=== PATIENT | male | born 1930 | race Caucasian/White ===

== ENCOUNTER 2017-03-27 14:27 | Emergency (ER) | payer MEDICARE, OTHER ==
[~2017-03-27] VITALS: Ht 177.8 cm; Wt 85.0 kg
[~2017-03-27 14:27] MED LIST: ASPI81 PO; FISH500C PO; METO25 PO; PROT40TA PO; SIMV20TA PO; VITA400C28 PO
[2017-03-27 14:33] VITALS: BP 135/96; PULSE 88; RESP 16; TEMP 98.5; O2SAT 94
[2017-03-27 14:57] LABS: GLUCOSE,URINE NEG (NEG); KETONE, URINE NEG (NEG); NITRITE,URINE NEG (NEG)
[2017-03-27 14:59] LABS: BLOOD, URINE MOD (NEG); METHOD OF COLLECTION CLEAN CATCH; URINE COLOR YELLOW (YELLW/STRAW)
[2017-03-27 15:01] LABS: COMMENT (UR) CULT NOT INDICATED; CULTURE IF INDICATED CULT NOT INDICATED; RBC, URINE 0-3 /hpf (0-3); WBC, URINE 0-2 /hpf (0-5)
[2017-03-27] MEDS ORDERED: FURO20TA PO (15:25)
[2017-03-27] MEDS ORDERED: POTA10CA PO (15:25)
[2017-03-27] MEDS ORDERED: OMEP20TA PO (15:25)
[2017-03-27] MEDS ORDERED: ZOCO20TA PO (15:25)
[2017-03-27] MEDS ORDERED: XARE20TA PO (15:25)
[2017-03-27] MEDS ORDERED: LOSA25TA PO (15:25)
[2017-03-27] MEDS ORDERED: TEMA30CA PO (15:25)
[2017-03-27] MEDS ORDERED: SODIUM CHLORIDE 0.9% FLUSH 10 ML FLUSH IV FLUSH PRN (16:00)
[2017-03-27 16:25] LABS: AUTOMATED NEUTROPHIL # 4.6 TH/MM3 (1.8-7.7); BASOPHIL # 0.1 TH/MM3 (0-0.2); EOSINOPHIL # 0.1 TH/MM3 (0-0.4); EOSINOPHIL % 1.8 % (0.0-4.0); HEMATOCRIT 41.5 % (39.0-51.0); HEMO FLAGS DIFF FINAL; LYMPH % 23.5 % (9.0-44.0); LYMPHOCYTE # 1.7 TH/MM3 (1.0-4.8); MEAN CELL VOLUME 89.5 FL (80.0-100.0); MEAN CORPUSCULAR HEMOGLOBIN 30.4 PG (27.0-34.0); MEAN CORPUSCULAR HGB CONC 33.9 % (32.0-36.0); MONO % 9.4 % (0.0-8.0); NEUT % 64.3 % (16.0-70.0); PLATELET COUNT 242 TH/MM3 (150-450); RED BLOOD COUNT 4.64 MIL/MM3 (4.50-5.90); RED CELL DISTRIBUTION WIDTH 12.9 % (11.6-17.2); WHITE BLOOD COUNT 7.2 TH/MM3 (4.0-11.0)
[2017-03-27 16:34] LABS: CHLORIDE 104 MEQ/L (98-107); POTASSIUM 3.7 MEQ/L (3.5-5.1); SODIUM (NA) 142 MEQ/L (136-145)
[2017-03-27 16:38] LABS: ANION GAP 10 MEQ/L (5-15); APTT (PATIENT) 32.1 SEC (24.3-30.1); BICARBONATE 28.4 MEQ/L (21.0-32.0); BLOOD UREA NITROGEN 13 MG/DL (7-18); INTERNATIONAL NORMALIZED RATIO 1.3 RATIO
--- NOTE | 2017-03-27 16:40 | PD ---
HPI Chief Complaint: Abdominal Pain Time Seen by Provider: 15:49 Travel History International Travel<30 days: No Contact w/Intl Traveler<30days: No Traveled to known affect area: No History of Present Illness HPI Patient is an 86-year-old male with history of afib, htn, hyperlipidemia who presents to emergency room with his with complaints of abdominal pain. Reports that he has been having right-sided flank/abdominal pain since yesterday morning. he reports the pain is constant, reports no nausea or vomiting with symptoms. Denies dysuria, urinary urgency or frequency or hematuria. Denies any history of kidney stones in the past. Reports that he normally has daily bm's, reports that he was unable to have a bowel movement today and was concerned that he may be constipated. 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) Cardiovascular Problems: Yes (PACEMAKER) High Cholesterol: Yes Chemotherapy: No Chest Pain: No Congestive Heart Failure: Yes COPD: No Cerebrovascular Accident: Yes (TIA 2004) Diabetes: No Diminished Hearing: No Endocrine: No Gastrointestinal Disorders: No GERD: Yes Glaucoma: No Genitourinary: No Hypertension: Yes Immune Disorder: No Implanted Vascular Access Dvce: Yes Musculoskeletal: Yes Neurologic: Yes (current admission) Psychiatric: No Reproductive: No Respiratory: No Myocardial Infarction: No Radiation Therapy: No Sickle Cell Disease: No Sleep Apnea: No Thyroid Disease: No Tetanus Vaccination: < 5 Years Influenza Vaccination: No Past Surgical History Cardiac Surgery: Yes (PACEMAKER INSERTION 2004, replaced in 2010) Pacemaker: Yes (GUIDANT, BATTERY REPLACE 04/2011,, REPLACED 08/24/11 -[employer]) Other Surgery: Yes Social History Alcohol Use: Yes (occas. wine ) Tobacco Use: No Substance Use: No Allergies-Medications (Allergen,Severity, Reaction): Coded Allergies: MRI PRECAUTION (Verified Allergy, Severe, PACEMAKER, 03/27/17) Reported Meds & Prescriptions Reported Meds & Active Scripts Active Reported Xarelto (Rivaroxaban) 20 Mg Tab 20 Mg PO DAILY Temazepam 30 Mg Cap 30 Mg PO HS PRN Furosemide 20 Mg Tab 20 Mg PO DAILY Omeprazole 20 Mg Tab 20 Mg PO DAILY Losartan (Losartan Potassium) 25 Mg Tab 25 Mg PO DAILY Zocor (Simvastatin) 20 Mg Tab 20 Mg PO DAILY Potassium Chloride ER (Potassium Chloride) 10 Meq Cap 10 Meq PO DAILY Review of Systems General / Constitutional: No: Fever, Chills Eyes: No: Visual changes HENT: No: Headaches Cardiovascular: No: Chest Pain or Discomfort Respiratory: No: Shortness of Breath Gastrointestinal: Positive: Abdominal Pain, Constipation Genitourinary: No: Dysuria Musculoskeletal: No: Pain Skin: No Rash Neurologic: No: Weakness Psychiatric: No: Depression Endocrine: No: Polydipsia Hematologic/Lymphatic: No: Easy Bruising Physical Exam Narrative GENERAL: No acute distress, nontoxic SKIN: Focused skin assessment warm/dry. HEAD: Atraumatic. Normocephalic. EYES: Pupils equal and round. No scleral icterus. No injection or drainage. ENT: No nasal bleeding or discharge. Mucous membranes pink and moist. NECK: Trachea midline. No JVD. CARDIOVASCULAR: Regular rate and rhythm. No murmur appreciated. RESPIRATORY: No accessory muscle use. Clear to auscultation. Breath sounds equal bilaterally. GASTROINTESTINAL: Abdomen soft, non-tender, nondistended. Hepatic and splenic margins not palpable. Rectal exam performed with RN at bedside, patient with soft stool in stool vault, no signs of obstruction MUSCULOSKELETAL: No obvious deformities. No clubbing. No cyanosis. No edema. NEUROLOGICAL: Awake and alert. No obvious cranial nerve deficits. Motor grossly within normal limits. Normal speech. PSYCHIATRIC: Appropriate mood and affect; insight and judgment normal. Data Data Last Documented VS Vital Signs Date Time Temp Pulse Resp B/P Pulse Ox O2 Delivery O2 Flow Rate FiO2 03/27/17 15:17 16 03/27/17 14:33 98.5 88 135/96 94 Orders Urinalysis - C+S If Indicated (03/27/17 14:39) Complete Blood Count With Diff (03/27/17 15:58) Comprehensive Metabolic Panel (03/27/17 15:58) Lipase (03/27/17 15:58) Prothrombin Time / Inr (Pt) (03/27/17 15:58) Act Partial Throm Time (Ptt) (03/27/17 15:58) Iv Access Insert/Monitor (03/27/17 15:58) Ecg Monitoring (03/27/17 15:58) Sodium Chloride 0.9% Flush (Ns Flush) (03/27/17 16:00) Ct Abd/Pel W/O Iv Contrast (03/27/17 16:46) Labs Laboratory Tests Test 03/27/17 03/27/17 14:40 16:15 Urine Collection Type CLEAN CATCH Urine Color YELLOW Urine Turbidity CLEAR Urine pH 6.0 Urine Specific Silt 1.007 Urine Protein NEG mg/dL Urine Glucose (UA) NEG mg/dL Urine Ketones NEG mg/dL Urine Occult Blood MOD Urine Nitrite NEG Urine Bilirubin NEG Urine Leukocyte Esterase NEG Urine RBC 0-3 /hpf Urine WBC 0-2 /hpf Microscopic Urinalysis Comment CULT NOT INDICATED White Blood Count 7.2 TH/MM3 Red Blood Count 4.64 MIL/MM3 Hemoglobin 14.1 GM/DL Hematocrit 41.5 % Mean Corpuscular Volume 89.5 FL Mean Corpuscular Hemoglobin 30.4 PG Mean Corpuscular Hemoglobin 33.9 % Concent Red Cell Distribution Width 12.9 % Platelet Count 242 TH/MM3 Mean Platelet Volume 8.6 FL Neutrophils (%) (Auto) 64.3 % Lymphocytes (%) (Auto) 23.5 % Monocytes (%) (Auto) 9.4 % Eosinophils (%) (Auto) 1.8 % Basophils (%) (Auto) 1.0 % Neutrophils # (Auto) 4.6 TH/MM3 Lymphocytes # (Auto) 1.7 TH/MM3 Monocytes # (Auto) 0.7 TH/MM3 Eosinophils # (Auto) 0.1 TH/MM3 Basophils # (Auto) 0.1 TH/MM3 CBC Comment DIFF FINAL Differential Comment Prothrombin Time 14.0 SEC Prothromb Time International 1.3 RATIO Ratio Activated Partial 32.1 SEC Thromboplast Time Sodium Level 142 MEQ/L Potassium Level 3.7 MEQ/L Chloride Level 104 MEQ/L Carbon Dioxide Level 28.4 MEQ/L Anion Gap 10 MEQ/L Blood Urea Nitrogen 13 MG/DL Creatinine 0.98 MG/DL Estimat Glomerular Filtration 72 ML/MIN Rate Random Glucose 95 MG/DL Calcium Level 8.4 MG/DL Total Bilirubin 0.7 MG/DL Aspartate Amino Transf 17 U/L (AST/SGOT) Alanine Aminotransferase 15 U/L (ALT/SGPT) Alkaline Phosphatase 68 U/L Total Protein 7.3 GM/DL Albumin 3.3 GM/DL Lipase 76 U/L MDM Medical Decision Making Medical Screen Exam Complete: Yes Emergency Medical Condition: Yes Interpretation(s) Vital Signs Date Time Temp Pulse Resp B/P Pulse Ox O2 Delivery O2 Flow Rate FiO2 03/27/17 15:17 16 03/27/17 14:33 98.5 88 16 135/96 94 Differential Diagnosis Differential includes constipation, kidney stones, pyelonephritis, cystitis, gastroenteritis, electrolyte abnormality Narrative Course Patient is an 86-year-old male who presents to emergency room with complaints of abdominal pain since yesterday morning. Patient reports that he feels constipated, has been unable to have a bowel movement today. Patient denies any fevers or chills, nausea or vomiting, denies any urinary symptoms at this time. Patient concerned for possible constipation. Patient is nontoxic on evaluation, patient reports that his pain is controlled this time. Plan to obtain lab work including CT abdomen pelvis without contrast for further evaluation of abdominal pain and constipation. Vital Signs Date Time Temp Pulse Resp B/P Pulse Ox O2 Delivery O2 Flow Rate FiO2 03/27/17 15:17 16 03/27/17 14:33 98.5 88 16 135/96 94 Laboratory Tests Test 03/27/17 03/27/17 14:40 16:15 Urine Collection Type CLEAN CATCH Urine Color YELLOW (YELLW/STRAW) Urine Turbidity CLEAR (CLEAR) Urine pH 6.0 (5.0-8.5) Urine Specific Silt 1.007 (1.002-1.035) Urine Protein NEG mg/dL (NEG-TRACE) Urine Glucose (UA) NEG mg/dL (NEG) Urine Ketones NEG mg/dL (NEG) Urine Occult Blood MOD (NEG) Urine Nitrite NEG (NEG) Urine Bilirubin NEG (NEG) Urine Leukocyte Esterase NEG (NEG) Urine RBC 0-3 /hpf (0-3) Urine WBC 0-2 /hpf (0-5) Microscopic Urinalysis Comment CULT NOT INDICATED White Blood Count 7.2 TH/MM3 (4.0-11.0) Red Blood Count 4.64 MIL/MM3 (4.50-5.90) Hemoglobin 14.1 GM/DL (13.0-17.0) Hematocrit 41.5 % (39.0-51.0) Mean Corpuscular Volume 89.5 FL (80.0-100.0) Mean Corpuscular Hemoglobin 30.4 PG (27.0-34.0) Mean Corpuscular Hemoglobin 33.9 % Concent (32.0-36.0) Red Cell Distribution Width 12.9 % (11.6-17.2) Platelet Count 242 TH/MM3 (150-450) Mean Platelet Volume 8.6 FL (7.0-11.0) Neutrophils (%) (Auto) 64.3 % (16.0-70.0) Lymphocytes (%) (Auto) 23.5 % (9.0-44.0) Monocytes (%) (Auto) 9.4 % (0.0-8.0) Eosinophils (%) (Auto) 1.8 % (0.0-4.0) Basophils (%) (Auto) 1.0 % (0.0-2.0) Neutrophils # (Auto) 4.6 TH/MM3 (1.8-7.7) Lymphocytes # (Auto) 1.7 TH/MM3 (1.0-4.8) Monocytes # (Auto) 0.7 TH/MM3 (0-0.9) Eosinophils # (Auto) 0.1 TH/MM3 (0-0.4) Basophils # (Auto) 0.1 TH/MM3 (0-0.2) CBC Comment DIFF FINAL Differential Comment Prothrombin Time 14.0 SEC (9.8-11.6) Prothromb Time International 1.3 RATIO Ratio Activated Partial 32.1 SEC Thromboplast Time (24.3-30.1) Sodium Level 142 MEQ/L (136-145) Potassium Level 3.7 MEQ/L (3.5-5.1) Chloride Level 104 MEQ/L (98-107) Carbon Dioxide Level 28.4 MEQ/L (21.0-32.0) Anion Gap 10 MEQ/L (5-15) Blood Urea Nitrogen 13 MG/DL (7-18) Creatinine 0.98 MG/DL (0.60-1.30) Estimat Glomerular Filtration 72 ML/MIN (>89) Rate Random Glucose 95 MG/DL (74-106) Calcium Level 8.4 MG/DL (8.5-10.1) Total Bilirubin 0.7 MG/DL (0.2-1.0) Aspartate Amino Transf 17 U/L (15-37) (AST/SGOT) Alanine Aminotransferase 15 U/L (12-78) (ALT/SGPT) Alkaline Phosphatase 68 U/L (45-117) Total Protein 7.3 GM/DL (6.4-8.2) Albumin 3.3 GM/DL (3.4-5.0) Lipase 76 U/L (73-393) cbc: wnl bmp: wnl coags: inr 1.3, pt 14, ptt 32.1 ua: mod blood Ct pending Last Impressions Abdomen/Pelvis CT 03/27/17 1646 Signed Impressions: Service Date/Time: Monday, March 27, 2017 17:15 - CONCLUSION: 1. No acute abnormality is seen. 2. Scattered colonic diverticula without inflammatory change. Ehsan Red MD Reviewed all labs and studies as well as incidental findings with patient and his in detail. Copies of his studies were given to him. Patient will return to ER as needed. Rectal exam benign. Abdomen is soft, nt/nd, no peritoneal signs on discharge. Signs and symptoms of an acute abdomen was reviewed with patient in detail. He will return to ER if he develops any of these symptoms. Diagnosis Primary Impression: Abdominal pain Qualified Code: R10.10 - Pain of upper abdomen Additional Impression: Hematuria Patient Instructions: General Instructions Additional Instructions: Please give patient a copy of his lab work and studies at discharge Please follow-up with your primary care doctor Return to the emergency room symptoms worsen or progress or return Return to emergency room as needed Disposition: 01 DISCHARGE HOME Condition: Stable Minoo Chinchilla DO Mar 27, 2017 16:40
[2017-03-27 16:41] LABS: ALT (GPT) 15 U/L (12-78); AST (GOT) 17 U/L (15-37); GLOMERULAR FILTRATION RATE 72 ML/MIN (>89)
[2017-03-27 16:43] LABS: TOTAL BILIRUBIN ADULT 0.7 MG/DL (0.2-1.0)
[2017-03-27 16:44] LABS: ALKALINE PHOSPHATASE 68 U/L (45-117)
--- NOTE | 2017-03-27 17:56 | RADRPT ---
EXAM DATE/TIME: 03/27/2017 17:15 [facility] COMPARISON: No previous studies available for comparison. INDICATIONS : Right sided pain for 2 days. Constipation. ORAL CONTRAST: No oral contrast ingested. RADIATION DOSE: 17.80 CTDIvol (mGy) MEDICAL HISTORY : Cardiovascular disease. SURGICAL HISTORY : Pacemaker. ENCOUNTER: Initial ACUITY: 2 days PAIN SCALE: 8/10 LOCATION: Right lateral TECHNIQUE: Volumetric scanning of the abdomen and pelvis was performed. Using automated exposure control and ad justment of the mA and/or kV according to patient size, radiation dose was kept as low as reasonably achievable to obtain optimal diagnostic quality images. DICOM format image data is available electro nically for review and comparison. FINDINGS: LOWER CHEST: There is a pacing device in place. There is interstitial disease at the bases. LIVER: Homogeneous density without lesion. There is no dilation of the biliary tree. No calcified gallston es. SPLEEN: Normal size without lesion. PANCREAS: Within normal limits. KIDNEYS: Normal in size and shape. There is no mass, stone, or hydronephrosis. ADRENAL GLANDS: Within normal limits. VASCULAR: There is no aortic aneurysm. Atherosclerotic calcifications are seen throughout the ureter system. BOWEL/MESENTERY: The stomach, small bowel, and colon demonstrate no acute abnormality. There is no free intraperitone al air or fluid. There are scattered colonic diverticula. The appendix is not seen. ABDOMINAL WALL: Within normal limits. RETROPERITONEUM: There is no lymphadenopathy. BLADDER: No wall thickening or mass. REPRODUCTIVE: Within normal limits. INGUINAL: There is no lymphadenopathy or hernia. MUSCULOSKELETAL: Within normal limits for patient age. CONCLUSION: 1. No acute abnormality is seen. 2. Scattered colonic diverticula without inflammatory change. Ehsan Red MD on March 27, 2017 at 17:45 Board Certified Radiologist. This report was verified electronically.
[2017-03-27 18:39] VITALS: BP 130/87
== END 2017-03-27 18:41 | disposition home or self-care (01) ==
LOC: PHED 14:27
DX: R10.10 Upper abdominal pain, unspecified (principal); R31.9 Hematuria, unspecified; I48.91 Unspecified atrial fibrillation; I50.9 Heart failure, unspecified; I11.0 Hypertensive heart disease with heart failure; Z86.73 Personal history of transient ischemic attack (TIA), and cerebral infarction without residual deficits; Z95.0 Presence of cardiac pacemaker; Z79.01 Long term (current) use of anticoagulants
CPT/HCPCS: 74176; 80053; 81001; 83690; 85025; 85610; 85730

== ENCOUNTER 2017-04-10 10:55 | Observation (INO) | payer OTHER ==
[~2017-04-10] VITALS: Ht 177.8 cm; Wt 86.8 kg
[~2017-04-10 10:55] MED LIST changes: -ASPI81 PO; -FISH500C PO; +FURO20TA PO; +LOSA25TA PO; -METO25 PO; +OMEP20TA PO; +POTA10CA PO; -PROT40TA PO; -SIMV20TA PO; +TEMA30CA PO; -VITA400C28 PO; +XARE20TA PO; +ZOCO20TA PO
[2017-04-10 10:59] VITALS: BP 123/76; PULSE 82; RESP 16; TEMP 98.3; O2SAT 95
[2017-04-10] MEDS ORDERED: SODIUM CHLORIDE 0.9% FLUSH 10 ML FLUSH IVF PRN (11:30)
[2017-04-10 11:40] VITALS: O2SAT 92
[2017-04-10 11:49] LABS: BASOPHIL # 0.1 TH/MM3 (0-0.2); BASOPHIL % 1.8 % (0.0-2.0); EOSINOPHIL # 0.1 TH/MM3 (0-0.4); EOSINOPHIL % 1.9 % (0.0-4.0); HEMATOCRIT 40.6 % (39.0-51.0); HEMO FLAGS DIFF FINAL; LYMPH % 20.8 % (9.0-44.0); LYMPHOCYTE # 1.3 TH/MM3 (1.0-4.8); MEAN CORPUSCULAR HEMOGLOBIN 29.8 PG (27.0-34.0); MEAN CORPUSCULAR HGB CONC 33.4 % (32.0-36.0); MONO % 12.5 % (0.0-8.0); PLATELET COUNT 276 TH/MM3 (150-450); RED BLOOD COUNT 4.56 MIL/MM3 (4.50-5.90); RED CELL DISTRIBUTION WIDTH 12.4 % (11.6-17.2); WHITE BLOOD COUNT 6.3 TH/MM3 (4.0-11.0)
[2017-04-10 12:01] LABS: CHLORIDE 102 MEQ/L (98-107); POTASSIUM 4.5 MEQ/L (3.5-5.1); SODIUM (NA) 137 MEQ/L (136-145)
[2017-04-10 12:04] LABS: APTT (PATIENT) 36.9 SEC (24.3-30.1); INTERNATIONAL NORMALIZED RATIO 1.3 RATIO; PROTHROMBIN TIME - PATIENT 14.7 SEC (9.8-11.6)
[2017-04-10 12:05] LABS: ANION GAP 5 MEQ/L (5-15); BLOOD UREA NITROGEN 12 MG/DL (7-18)
--- NOTE | 2017-04-10 12:07 | PD ---
HPI Chief Complaint: GI Complaint Time Seen by Provider: 11:04 Travel History International Travel<30 days: No Contact w/Intl Traveler<30days: No Traveled to known affect area: No History of Present Illness HPI Patient sneezed 86-year-old male presents emergency department for evaluation of rectal bleeding which is painless. Patient states happened to him once several months ago and had a colonoscopy which didn't show any acute source of bleeding but did show gastritis, Cornejo's esophagus and diverticulosis. Patient denies any feelings of weakness and dizziness syncope abdominal pain nausea or vomiting. He is on blood thinners for history of atrial fibrillation. He states his symptoms have been bright red blood and dark blood per rectum. 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) Cardiovascular Problems: Yes (a-fib,pacemaker) High Cholesterol: Yes Chemotherapy: No Chest Pain: No Congestive Heart Failure: Yes COPD: No Cerebrovascular Accident: Yes (TIA 2004) Diabetes: No Diminished Hearing: No Endocrine: No Gastrointestinal Disorders: No GERD: Yes Glaucoma: No Genitourinary: No Hypertension: Yes Immune Disorder: No Implanted Vascular Access Dvce: Yes Musculoskeletal: Yes Neurologic: Yes (current admission) Psychiatric: No Reproductive: No Respiratory: Yes (chf) Myocardial Infarction: No Radiation Therapy: No Sickle Cell Disease: No Sleep Apnea: No Thyroid Disease: No ?: Not Past Surgical History Cardiac Surgery: Yes (PACEMAKER INSERTION 2004, replaced in 2010) Pacemaker: Yes (GUIDANT, BATTERY REPLACE 04/2011,, REPLACED 08/24/11 -[employer]) Other Surgery: Yes Social History Alcohol Use: Yes (occas. wine ) Tobacco Use: No Substance Use: No Allergies-Medications (Allergen,Severity, Reaction): Coded Allergies: MRI PRECAUTION (Verified Allergy, Severe, PACEMAKER, 04/10/17) Reported Meds & Prescriptions Reported Meds & Active Scripts Active Reported Xarelto (Rivaroxaban) 20 Mg Tab 20 Mg PO DAILY Temazepam 30 Mg Cap 30 Mg PO HS PRN Furosemide 20 Mg Tab 20 Mg PO DAILY Losartan (Losartan Potassium) 25 Mg Tab 25 Mg PO DAILY Zocor (Simvastatin) 20 Mg Tab 20 Mg PO DAILY Potassium Chloride ER (Potassium Chloride) 10 Meq Cap 10 Meq PO DAILY Review of Systems Except as stated in HPI: all other systems reviewed are Neg Physical Exam Narrative GENERAL: Well-developed well-nourished no apparent distress. SKIN: Multiple lesions on the face patient states chronic skin condition. HEAD: Atraumatic. Normocephalic. EYES: Pupils equal and round. No scleral icterus. No injection or drainage. ENT: No nasal bleeding or discharge. Mucous membranes pink and moist. NECK: Trachea midline. No JVD. CARDIOVASCULAR: Regular rate and rhythm. No murmur appreciated. RESPIRATORY: No accessory muscle use. Clear to auscultation. Breath sounds equal bilaterally. GASTROINTESTINAL: Abdomen soft, non-tender, nondistended. Hepatic and splenic margins not palpable. Rectal exam shows positive fecal occult without any gross blood. MUSCULOSKELETAL: No obvious deformities. No clubbing. No cyanosis. No edema. NEUROLOGICAL: Awake and alert. No obvious cranial nerve deficits. Motor grossly within normal limits. Normal speech. PSYCHIATRIC: Appropriate mood and affect; insight and judgment normal. Data Data Last Documented VS Vital Signs Date Time Temp Pulse Resp B/P Pulse Ox O2 Delivery O2 Flow Rate FiO2 04/10/17 12:59 73 127/75 93 04/10/17 10:59 98.3 16 Orders Complete Blood Count With Diff (04/10/17 11:21) Comprehensive Metabolic Panel (04/10/17 11:21) Lipase (04/10/17 11:21) Prothrombin Time / Inr (Pt) (04/10/17 11:21) Act Partial Throm Time (Ptt) (04/10/17 11:21) Type And Screen (04/10/17 11:21) Ecg Monitoring (04/10/17 11:21) Iv Access Insert/Monitor (04/10/17 11:21) Oximetry (04/10/17 11:21) Sodium Chloride 0.9% Flush (Ns Flush) (04/10/17 11:30) Admit Order (Ed Use Only) (04/10/17 ) Labs Laboratory Tests Test 04/10/17 11:34 White Blood Count 6.3 TH/MM3 Red Blood Count 4.56 MIL/MM3 Hemoglobin 13.6 GM/DL Hematocrit 40.6 % Mean Corpuscular Volume 89.0 FL Mean Corpuscular Hemoglobin 29.8 PG Mean Corpuscular Hemoglobin 33.4 % Concent Red Cell Distribution Width 12.4 % Platelet Count 276 TH/MM3 Mean Platelet Volume 8.3 FL Neutrophils (%) (Auto) 63.0 % Lymphocytes (%) (Auto) 20.8 % Monocytes (%) (Auto) 12.5 % Eosinophils (%) (Auto) 1.9 % Basophils (%) (Auto) 1.8 % Neutrophils # (Auto) 4.0 TH/MM3 Lymphocytes # (Auto) 1.3 TH/MM3 Monocytes # (Auto) 0.8 TH/MM3 Eosinophils # (Auto) 0.1 TH/MM3 Basophils # (Auto) 0.1 TH/MM3 CBC Comment DIFF FINAL Differential Comment Prothrombin Time 14.7 SEC Prothromb Time International 1.3 RATIO Ratio Activated Partial 36.9 SEC Thromboplast Time Sodium Level 137 MEQ/L Potassium Level 4.5 MEQ/L Chloride Level 102 MEQ/L Carbon Dioxide Level 30.0 MEQ/L Anion Gap 5 MEQ/L Blood Urea Nitrogen 12 MG/DL Creatinine 1.10 MG/DL Estimat Glomerular Filtration 63 ML/MIN Rate Random Glucose 80 MG/DL Calcium Level 8.2 MG/DL Total Bilirubin 0.4 MG/DL Aspartate Amino Transf 21 U/L (AST/SGOT) Alanine Aminotransferase 16 U/L (ALT/SGPT) Alkaline Phosphatase 77 U/L Total Protein 7.7 GM/DL Albumin 3.3 GM/DL Lipase 100 U/L Blood Type O POSITIVE Antibody Screen NEGATIVE MDM Medical Decision Making Medical Screen Exam Complete: Yes Emergency Medical Condition: Yes Differential Diagnosis Anemia, GI bleeding, upper GI bleeding, gastritis, diverticulosis, colon cancer. Narrative Course Patient roomed in the emergency department, appears well in no apparent distress , hemoglobin was within normal limits, he does have occult positive stool and has a history of being on blood thinners. He describes more significant bleeding at home and is having severe. Discussed with him that considerations need to be given for inpatient hemoglobin trending at a minimum and he is agreeable. Patient was discussed with Dr. Núñez for observation status and he is agreed. Remainder of the labs within normal limits, his abdomen is benign. Diagnosis Primary Impression: GI bleeding Qualified Code: K92.2 - Gastrointestinal hemorrhage, unspecified gastrointestinal hemorrhage type Admitting Information Admitting Physician Requests: Observation Condition: Stable Toñito Treadwell MD Apr 10, 2017 12:07
[2017-04-10 12:08] LABS: ALT (GPT) 16 U/L (12-78); AST (GOT) 21 U/L (15-37); GLOMERULAR FILTRATION RATE 63 ML/MIN (>89)
[2017-04-10 12:09] LABS: TOTAL BILIRUBIN ADULT 0.4 MG/DL (0.2-1.0)
[2017-04-10 12:10] LABS: ALKALINE PHOSPHATASE 77 U/L (45-117)
[2017-04-10 12:59] VITALS: BP 127/75; PULSE 73; O2SAT 93
[2017-04-10] MEDS ORDERED: SODIUM CHLOR 0.9% 1000 ML INJ 1,000 ML IV SCH (13:29)
[2017-04-10] MEDS ORDERED: LACTULOSE SYRUP 20 GM/30 ML CUP PO PRN (13:30)
[2017-04-10] MEDS ORDERED: MAGNESIUM HYDROXIDE SUSP 30 ML CUP PO PRN (13:30)
[2017-04-10] MEDS ORDERED: SODIUM CHLORIDE 0.9% FLUSH 10 ML FLUSH IV FLUSH PRN (13:30)
[2017-04-10] MEDS ORDERED: SENNOSIDES 8.6 MG TAB PO PRN (13:30)
[2017-04-10] MEDS ORDERED: ONDANSETRON HCL 4 MG/2 ML VIAL IVP PRN (13:30)
[2017-04-10] MEDS ORDERED: BISACODYL 10 MG SUPP RECTAL PRN (13:30)
[2017-04-10] MEDS ORDERED: NALOXONE HCL 0.4 MG/ML AMP IV PRN (13:30)
[2017-04-10 15:49] VITALS: PULSE 68
[2017-04-10 16:00] VITALS: BP 145/85; PULSE 66; RESP 20; TEMP 95.5; O2SAT 92
[2017-04-10] MEDS ORDERED: TEMAZEPAM 15 MG CAP PO PRN (17:15)
--- NOTE | 2017-04-10 17:23 | HHI.HP ---
[facility] Service [facility] Primary Care Physician Donald Smith MD Admission Diagnosis GI bleed. Diagnoses: Chief Complaint: Rectal bleed Travel History International Travel<30 Days: No Contact w/Intl Traveler <30 Da: No Traveled to Known Affected Are: No History of Present Illness 86 years old maleH/O CHF, hypertension came to the ED with history of 2 days rectal bleed which was painless, most of the history was divided by the who take care of the patient, she stated he had multiple bowel movements with dark blood mixed with the stool. Patient had colonoscopy a few months ago which showed diverticulosis otherwise normal. No hematemesis no diarrhea or constipation, patient reported feeling bloated, he passed gas. No chest pain short of breath fever or chills diarrhea constipation Review of Systems All systems reviewed and was positive for what is mentioned in history of present illness otherwise negative Past Family Social History Past Medical History Basal cell carcinoma of the right cheek A. fib status post pacemaker History of TIA 2004 CHF Past Surgical History Pacemaker Allergies: Coded Allergies: MRI PRECAUTION (Verified Allergy, Severe, PACEMAKER, 04/10/17) Family History Breasts cancer in his sister Social History Drink wine occasionally no other illicit drug or tobacco abuse Physical Exam Vital Signs Vital Signs Date Time Temp Pulse Resp B/P Pulse Ox O2 Delivery O2 Flow Rate FiO2 04/10/17 15:49 68 04/10/17 12:59 73 127/75 93 04/10/17 11:40 92 04/10/17 10:59 98.3 82 16 123/76 95 Physical Exam GENERAL: This is a well-nourished, well-developed patient, in no apparent distress. SKIN: No rashes, warm and dry HEAD: Atraumatic. Normocephalic. EYES: Pupils equal round and reactive. Extraocular motions intact. No scleral icterus. ENT: Nose without bleeding, or drainage, Airway patent. NECK: Trachea midline. Supple CARDIOVASCULAR: Regular rate and rhythm without murmurs, gallops, or rubs. RESPIRATORY: Fair air entry bilaterally. No wheezes, rales, or rhonchi. GASTROINTESTINAL: Abdomen soft, non-tender, nondistended. Positive bowel sounds MUSCULOSKELETAL: Extremities without clubbing, cyanosis, he has pulse 1 edema in lower external. Pedal pulses appreciated NEUROLOGICAL: Awake and alert. Moves all extremity. Normal speech.no focal neurological deficit Laboratory Laboratory Tests Test 04/10/17 11:34 White Blood Count 6.3 Red Blood Count 4.56 Hemoglobin 13.6 Hematocrit 40.6 Mean Corpuscular Volume 89.0 Mean Corpuscular Hemoglobin 29.8 Mean Corpuscular Hemoglobin 33.4 Concent Red Cell Distribution Width 12.4 Platelet Count 276 Mean Platelet Volume 8.3 Neutrophils (%) (Auto) 63.0 Lymphocytes (%) (Auto) 20.8 Monocytes (%) (Auto) 12.5 Eosinophils (%) (Auto) 1.9 Basophils (%) (Auto) 1.8 Neutrophils # (Auto) 4.0 Lymphocytes # (Auto) 1.3 Monocytes # (Auto) 0.8 Eosinophils # (Auto) 0.1 Basophils # (Auto) 0.1 CBC Comment DIFF FINAL Differential Comment Prothrombin Time 14.7 Prothromb Time International 1.3 Ratio Activated Partial 36.9 Thromboplast Time Sodium Level 137 Potassium Level 4.5 Chloride Level 102 Carbon Dioxide Level 30.0 Anion Gap 5 Blood Urea Nitrogen 12 Creatinine 1.10 Estimat Glomerular Filtration 63 Rate Random Glucose 80 Calcium Level 8.2 Total Bilirubin 0.4 Aspartate Amino Transf 21 (AST/SGOT) Alanine Aminotransferase 16 (ALT/SGPT) Alkaline Phosphatase 77 Total Protein 7.7 Albumin 3.3 Lipase 100 Blood Type O POSITIVE Antibody Screen NEGATIVE Result Diagram: 04/10/17 1134 04/10/17 1134 Assessment and Plan Assessment and Plan 86 years old male with history of A. fib on Xarelto presented with Rectal bleed rule out GI bleed Hold Xarelto, monitor H&H, consulted GI, discussed with Plan for EGD and colonoscopy in a.m. Patient had colonoscopy a few month ago showed diverticulosis and possible benign polyp A. fib Patient has a pacemaker Hold Xarelto Rate is controlled Congestive heart failure unspecified No acute exacerbation Monitor BMP Resume Lasix Monitor intake and output DVT prophylaxis with SCD, chemical contraindicated patient has been on Xarelto will hold for now Discussed Condition With Patient, his , ED physician, GI specialist Marine Mays MD Apr 10, 2017 17:23
[2017-04-10] MEDS: FUROSEMIDE 20 MG TAB PO SCH (17:41)
--- NOTE | 2017-04-10 17:49 | MB ---
cc: BERNIE PARKER M.D., KHALIL MD DATE OF CONSULTATION: 04/10/2017 REASON FOR CONSULTATION: Rectal bleeding. HISTORY OF PRESENT ILLNESS: Mr. Valenzuela is an 86-year-old gentleman who takes Xarelto at home. He presents with one day history of rectal bleeding. He states he had a colonoscopy done in September with Dr. Lopez. At that time he was found to have diverticulosis and hemorrhoids but no evidence of bleeding. Prior to that in 2011. He had an EGD and a colonoscopy revealing Cornejo's esophagus, gastritis, diverticulosis and hemorrhoids. He states that bleeding is not a regular issue for him and essentially came in with significant bleeding last evening mostly red blood with some dark blood in the stools as well. Currently he is not having active bleeding. There is no abdominal pain and no change in bowels reported. PAST MEDICAL HISTORY Atrial fibrillation Autoimmune disease. Cancer of cheek. Elevated cholesterol Congestive heart failure Status post TIA in 2004 Congestive heart failure. PAST SURGICAL HISTORY Pacemaker insertion in 2004 replaced in 2010. Esophagogastroduodenoscopy and colonoscopies as previously mentioned SOCIAL HISTORY Occasional alcohol. No tobacco reported. ALLERGIES None reported. MEDICATIONS 1. Xarelto 2. Temazepam 3. Lasix 4. Zocor 5. Potassium chloride. REVIEW OF SYSTEMS The patient is having no active bleeding at this time but basically came in with rectal bleeding. No abdominal pain. No hematemesis or hematochezia at this time. PHYSICAL EXAMINATION: IN GENERAL: Physical examination reveals a well-nourished man in no apparent distress. VITAL SIGNS: The vital signs are stable. HEAD/NECK: Head and neck examination anicteric sclerae. CHEST: The chest has bilateral air entry with rales. ABDOMEN: The abdomen is soft, nontender. No hepatosplenomegaly. Bowel sounds are present. CENTRAL NERVOUS SYSTEM: Exam is nonfocal. RECTUM: Rectal exam deferred at this time. LABORATORY FINDINGS: Labs reveal hemoglobin 13.6, INR 1.3. Liver function tests are normal. IMPRESSION Rectal bleeding, very likely diverticular bleed. RECOMMENDATIONS EGD, colonoscopy discussed with the patient and his . They are agreeable to proceed this is planned for tomorrow. Continue to monitor labs. Clear liquid diet today. Continue monitor for signs of bleeding. Further recommendations to follow after the procedures tomorrow. Continue to hold anticoagulation at this time. This has been discussed with Dr. Mays. MD THERESE Purcell/zoran /5:20 PM /5:44 PM
[2017-04-10] MEDS ORDERED: PEG (High)/E-LYTE SOLN 4000 ML BTL PO ONE (18:00)
[2017-04-10 20:00] VITALS: BP 139/91; PULSE 75; RESP 18; TEMP 96.3; O2SAT 96
[2017-04-10] MEDS: DOCUSATE SODIUM 50 MG/SENNA 8.6 MG TAB PO SCH (21:00)
[2017-04-11] VITALS: BP 115/81; PULSE 78; RESP 18; TEMP 97.1; O2SAT 96
[2017-04-11 04:00] VITALS: BP 113/74; PULSE 85; RESP 18; TEMP 97; O2SAT 96
[2017-04-11 06:32] LABS: BASOPHIL # 0.1 TH/MM3 (0-0.2); BASOPHIL % 1.4 % (0.0-2.0); EOSINOPHIL # 0.2 TH/MM3 (0-0.4); EOSINOPHIL % 2.8 % (0.0-4.0); HEMATOCRIT 38.4 % (39.0-51.0); HEMO FLAGS DIFF FINAL; LYMPHOCYTE # 1.2 TH/MM3 (1.0-4.8); MEAN CORPUSCULAR HEMOGLOBIN 29.5 PG (27.0-34.0); MEAN CORPUSCULAR HGB CONC 33.2 % (32.0-36.0); MONO % 10.5 % (0.0-8.0); NEUT % 66.3 % (16.0-70.0); PLATELET COUNT 267 TH/MM3 (150-450); RED BLOOD COUNT 4.31 MIL/MM3 (4.50-5.90); RED CELL DISTRIBUTION WIDTH 12.4 % (11.6-17.2); WHITE BLOOD COUNT 6.1 TH/MM3 (4.0-11.0)
[2017-04-11 06:45] LABS: POTASSIUM 3.8 MEQ/L (3.5-5.1)
[2017-04-11 06:55] LABS: BICARBONATE 27.4 MEQ/L (21.0-32.0)
[2017-04-11 08:58] VITALS: BP 118/71; PULSE 83; RESP 15; TEMP 98.1; O2SAT 94
[2017-04-11] MEDS ORDERED: LOSARTAN 25 MG TAB PO SCH (09:00)
[2017-04-11] MEDS: DOCUSATE SODIUM 50 MG/SENNA 8.6 MG TAB PO SCH (09:00)
[2017-04-11] MEDS ORDERED: PRAVASTATIN SOD 40 MG TAB PO SCH (09:00)
[2017-04-11] MEDS: SODIUM CHLORIDE 0.9% FLUSH 10 ML FLUSH IV FLUSH SCH ×2 (09:00→09:31)
--- NOTE | 2017-04-11 09:05 | HHI.PR ---
Subjective Remarks resting comfortably with no acute distress. had trace of blood in the stool last evening. has mild abdominal discomfort. no nausea or vomiting. Objective Vitals Vital Signs Date Time Temp Pulse Resp B/P Pulse Ox O2 Delivery O2 Flow Rate FiO2 04/11/17 04:00 97.0 85 18 113/74 96 04/11/17 00:00 97.1 78 18 115/81 96 04/10/17 20:00 96.3 75 18 139/91 96 04/10/17 20:00 75 04/10/17 16:00 95.5 66 20 145/85 92 04/10/17 15:49 68 04/10/17 12:59 73 127/75 93 04/10/17 11:40 92 04/10/17 10:59 98.3 82 16 123/76 95 I/O 04/10/17 04/10/17 04/10/17 04/11/17 04/11/17 04/11/17 07:00 15:00 23:00 07:00 15:00 23:00 Intake Total 1000 ml Output Total 350 ml Balance 650 ml Intake Oral 1000 ml Output Urine Total 350 ml # Voids 1 # Bowel Movements 3 Result Diagram: 04/11/17 0550 04/11/17 0555 Objective Remarks GENERAL: This is a well-nourished, well-developed patient, in no apparent distress. CARDIOVASCULAR: Regular rate and regular rhythm without murmurs, gallops, or rubs. RESPIRATORY: Clear to auscultation. Breath sounds equal bilaterally. No wheezes , rales, or rhonchi. GASTROINTESTINAL: Abdomen soft, non-tender, nondistended. Normal, active bowel sounds MUSCULOSKELETAL: Extremities without clubbing, cyanosis, or edema. NEURO: Alert & Oriented x4 to person, place, time, situation. Moves all ext x4 Medications and IVs Current Medications Sodium Chloride 2 ml 2 ml UNSCH PRN IVF FLUSH AFTER USING IV ACCESS; Start at 11:30; Stop 04/10/17 at 14:11; Status DC Sodium Chloride (NS 1000 ml Inj) 1,000 ml @ 65 mls/hr [id number] IV Last administered on 04/10/17t 14:52; Start 04/10/17 at 13:29; Stop 04/10/17 at 17:03 ; Status DC Sodium Chloride (NS Flush) 2 ml UNSCH PRN IV FLUSH FLUSH AFTER USING IV ACCESS ; Start 04/10/17 at 13:30 Sodium Chloride (NS Flush) 2 ml BID IV FLUSH ; Start 04/10/17 at 21:00 Ondansetron HCl (Zofran Inj) 4 mg Q6H PRN IVP NAUSEA OR VOMITING; Start at 13:30 Naloxone HCl (Narcan Inj) 0.4 mg UNSCH PRN IV SEE LABEL COMMENTS; Start at 13:30 Senna/Docusate Sodium (Zora-Colace) 1 tab BID PO ; Start 04/10/17 at 21:00 Magnesium Hydroxide (Milk Of Magnesia Liq) 30 ml Q12H PRN PO MILD - MODERATE CONSTIPATION; Start 04/10/17 at 13:30 Sennosides (Senokot) 17.2 mg Q12H PRN PO MODERATE - SEVERE CONSTIPATION; Start 04/10/17 at 13:30 Bisacodyl (Dulcolax Supp) 10 mg DAILY PRN RECTAL SEVERE CONSITIPATION; Start at 13:30 Lactulose (Lactulose Liq) 30 ml DAILY PRN PO SEVERE CONSITIPATION; Start at 13:30 Polyethylene Glycol/ Electrolytes (Colyte Liq) 4,000 ml ONCE ONCE PO Last administered on 04/10/17t 17:43; Start 04/10/17 at 18:00; Stop 04/10/17 at 18:01 ; Status DC Furosemide (Lasix) 20 mg DAILY PO ; Start 04/10/17 at 18:00 Losartan Potassium (Cozaar) 25 mg DAILY PO ; Start 04/11/17 at 09:00 Temazepam (Restoril) 30 mg HS PRN PO INSOMNIA; Start 04/10/17 at 17:15 Pravastatin Sodium (Pravachol) 40 mg DAILY PO ; Start 04/11/17 at 09:00 A/P Assessment and Plan A/P Rectal bleed Hold Xarelto, monitor H&H, consulted GI; plan for endoscopy. Patient had colonoscopy a few month ago showed diverticulosis and polyp A. fib Patient has a pacemaker Hold Xarelto Rate is controlled Congestive heart failure - compensated. Resumed Lasix Monitor intake and output DVT prophylaxis with SCD, chemical contraindicated patient has been on Xarelto will hold for now Discharge Planning awaiting GI work-up/ recommendations. Yessica Whatley MD Apr 11, 2017 09:05
[2017-04-11] MEDS: FUROSEMIDE 20 MG TAB PO SCH (09:29)
[2017-04-11 11:12] VITALS: BP 152/87; PULSE 69; RESP 14; TEMP 98.4; O2SAT 96
[2017-04-11] MEDS ORDERED: PROPOFOL 200 MG/20 ML AMP IV ONE (12:08)
--- NOTE | 2017-04-11 12:12 | GIPROC ---
[facility] [address] [place] [address], [id number] EGD PROCEDURE REPORT EXAM DATE: 04/11/2017 PATIENT NAME: Isidro Valenzuela MR #: [id number] BIRTHDATE: 1930 ATTENDING: Shaina Sweeney MD ORDER #: [id number] LEADERSHIP DEVELOPMENT CONSULTANT: Augustus Vera and Jessenia Diaz STATUS: inpatient INDICATIONS: The patient is a 86 yr old male here for an EGD due to hematochezia PROCEDURE PERFORMED: EGD w/ biopsy MEDICATIONS: None and Per Anesthesia. TOPICAL ANESTHETIC: CONSENT: The patient understands the risks and benefits of the procedure and understands that these risks include, but are not limited to: sedation, allergic reaction, infection, perforation and/or bleeding. Alternative means of evaluation and treatment include, among others: physical exam, x-rays, and/or surgical intervention. The patient elects to proceed with this endoscopic procedure. medical equipment was checked for proper function. Hand hygiene and appropriate measures for infection prevention was taken. After the risks, benefits and alternatives of the procedure were thoroughly explained, Informed consent was verified, confirmed and timeout was successfully executed by the treatment team. The patient was anesthetized with topical anesthesia and the EC-[id number] (Pedi C) endoscope was introduced through the mouth and advanced to the second portion of the duodenum. Retroflexed views revealed a hiatal hernia The gastroscope was then slowly withdrawn and removed. ESOPHAGUS: There was a 2cm segment of Cornejo's esophagus found in the distal esophagus. The length of circumferential Cornejo's was 2cm ([place] C2) and the length of Maximal extent of Cornejo's was 2cm ([place] M2). There was no nodular mucosa noted in the Corneoj's segment. A biopsy was performed using cold forceps. Sample sent for histology. STOMACH: There was mild gastritis in the gastric antrum. DUODENUM: The duodenal mucosa appeared normal. ADVERSE EVENTS: There were no complications. IMPRESSIONS: 1. There was a 2cm segment of Cornejo's esophagus found in the distal esophagus; biopsy was performed 2. There was mild gastritis in the gastric antrum 3. Normal duodenal mucosa 4. Retroflexed views revealed a hiatal hernia RECOMMENDATIONS: 1. Await biopsy results. Biopsy results will not be ready for 7-10 days. If you don't hear from us in two weeks, call our office for biopsy results. 2. Anti-reflux regimen 3. Continue PPI 4. Avoid NSAIDS PATIENT CONDITION: stable DISPOSITION: Inpatient REPEAT EXAM: Return 3 years EGD pending biopsy results Shaina Sweeney MD eSigned: Shaina Sweeney MD 04/11/2017 12:12 PM cc: PATIENT NAME: Isidro Valenzuela MR#: [id number]
--- NOTE | 2017-04-11 12:20 | GIPROC ---
[facility] [address] [place] [address], [id number] COLONOSCOPY PROCEDURE REPORT EXAM DATE: 04/11/2017 PATIENT NAME: Isidro Valenzuela MR #: [id number] BIRTHDATE: 1930 ENDOSCOPIST: Shaina Sweeney MD ORDER #: [id number] VAULT MANAGER: Augustus Vera and Jessenia Diaz STATUS: inpatient INDICATIONS: The patient is a 86 yr old male here for a colonoscopy due to hematochezia PROCEDURE PERFORMED: Colonoscopy, diagnostic MEDICATIONS: None and Per Anesthesia. PREP QUALITY: The [place] Bowel Prep Score was Right colon 3, Mid colon 3, and Left colon 2. Total = 8. PREP TYPE:GoLytely ESTIMATED BLOOD LOSS: None CONSENT: The patient understands the risks and benefits of the procedure and understands that these risks include, but are not limited to: sedation, allergic reaction, infection, perforation and/or bleeding. Alternative means of evaluation and treatment include, among others: physical exam, x-rays, and/or surgical intervention. The patient elects to proceed with this endoscopic procedure. medical equipment was checked for proper function. Hand hygiene and appropriate measures for infection prevention was taken. After the risks, benefits and alternatives of the procedure were thoroughly explained, Informed consent was verified, confirmed and timeout was successfully executed by the treatment team. A digital exam revealed external hemorrhoids The Pentax EC-[id number] endoscope was introduced through the anus and advanced to the cecum, which was identified by both the appendix and ileocecal valve. The instrument was then slowly withdrawn as the colon was fully examined. COLON FINDINGS: Moderate diverticulosis was noted in the sigmoid colon. No bleeding was noted from the diverticulosis. Retroflexed views revealed internal hemorrhoids and Retroflexed views revealed medium internal hemorrhoids The scope was then completely withdrawn from the patient and the procedure terminated. PROCEDURE WITHDRAWAL TIME:6minutes ADVERSE EVENTS: There were no complications. IMPRESSIONS: 1. Moderate diverticulosis was noted in the sigmoid colon 2. Retroflexed views revealed internal hemorrhoids 3. Retroflexed views revealed medium internal hemorrhoids 4. Revealed external hemorrhoids RECOMMENDATIONS: 1. Benefiber 2 tsp daily 2. Continue surveillance 3. Yearly hemoccult 4. Hydrocortisone supp 25mg [place] hs RECALL: Colonoscopy PRN Shaina Sweeney MD eSigned: Shaina Sweeney MD 04/11/2017 12:20 PM cc: PATIENT NAME: Isidro Valenzuela MR#: [id number]
[2017-04-11 16:59] VITALS: BP 122/84; PULSE 82; RESP 14; TEMP 97.9; O2SAT 94
[2017-04-11] MEDS ORDERED: SIMETHICONE 80 MG CHEWABLE TAB PO ONE (18:30)
[2017-04-11] MEDS ORDERED: PROT40TA PO (18:37)
== END 2017-04-11 19:03 | disposition home or self-care (01) ==
LOC: PHED 10:55 → PHEDA 13:25 → PH3B 13:57
PROVIDERS: ADMIT Internal Medicine; ATTEND Internal Medicine
DX: K92.2 Gastrointestinal hemorrhage, unspecified (principal); K22.70 Barrett's esophagus without dysplasia; K44.9 Diaphragmatic hernia without obstruction or gangrene; K29.70 Gastritis, unspecified, without bleeding; K57.90 Diverticulosis of intestine, part unspecified, without perforation or abscess without bleeding; K64.8 Other hemorrhoids; I11.0 Hypertensive heart disease with heart failure; I50.9 Heart failure, unspecified; I48.91 Unspecified atrial fibrillation; E78.00 Pure hypercholesterolemia, unspecified; K21.9 Gastro-esophageal reflux disease without esophagitis; Z79.899 Other long term (current) drug therapy; Z79.01 Long term (current) use of anticoagulants; Z95.0 Presence of cardiac pacemaker; Z86.73 Personal history of transient ischemic attack (TIA), and cerebral infarction without residual deficits; Z85.828 Personal history of other malignant neoplasm of skin
CPT/HCPCS: 00740; 00810; 43239; 45378; 80048; 80053; 83690; 85025; 85610; 85730; 86850; 86900; 86901; 88305; 97110; 97116; 97162; 99285; G0378; G8987; G8988; J7030

== ENCOUNTER 2017-11-12 08:51 | Inpatient (IN) | payer OTHER, MEDICARE ==
[2017-11-12] VITALS (11 sets, daily range): BP systolic 113–140; BP diastolic 63–93; PULSE 65–81; RESP 16–20; TEMP 96.3–98.3; O2SAT 92–99
[~2017-11-12] VITALS: Ht 179.1 cm; Wt 85.5 kg
[~2017-11-12 08:51] MED LIST changes: -OMEP20TA PO; +PROT40TA PO
[2017-11-12] MEDS ORDERED: SODIUM CHLOR 0.9% 1000 ML INJ 1,000 ML IV ONE (08:57)
[2017-11-12 09:08] LABS: AUTOMATED NEUTROPHIL # 3.5 TH/MM3 (1.8-7.7); BASOPHIL % 0.7 % (0.0-2.0); EOSINOPHIL # 0.1 TH/MM3 (0-0.4); EOSINOPHIL % 2.1 % (0.0-4.0); HEMATOCRIT 39.3 % (39.0-51.0); HEMOGLOBIN 13.3 GM/DL (13.0-17.0); LYMPH % 20.8 % (9.0-44.0); LYMPHOCYTE # 1.1 TH/MM3 (1.0-4.8); MEAN CELL VOLUME 90.9 FL (80.0-100.0); MEAN CORPUSCULAR HEMOGLOBIN 30.7 PG (27.0-34.0); MEAN CORPUSCULAR HGB CONC 33.8 % (32.0-36.0); MEAN PLATELET VOLUME 8.9 FL (7.0-11.0); MONO % 10.5 % (0.0-8.0); MONOCYTE # 0.5 TH/MM3 (0-0.9); NEUT % 65.9 % (16.0-70.0); PLATELET COUNT 227 TH/MM3 (150-450); RED BLOOD COUNT 4.33 MIL/MM3 (4.50-5.90); RED CELL DISTRIBUTION WIDTH 13.3 % (11.6-17.2); WHITE BLOOD COUNT 5.2 TH/MM3 (4.0-11.0)
--- NOTE | 2017-11-12 09:16 | RADRPT ---
EXAM DATE/TIME: 11/12/2017 08:57 [facility] COMPARISON: No previous studies available for comparison. INDICATIONS : Stroke alert. Left sided weakness, facial droop and slurred speech. RADIATION DOSE: 57.75 CTDIvol (mGy) This report was called to Dr. Montoya at 9: 12 am MEDICAL HISTORY : Non-responsive. SURGICAL HISTORY : Non-responsive. ENCOUNTER: Initial ACUITY: 1 day PAIN SCALE: 0/10 LOCATION: cranial TECHNIQUE: Multiple contiguous axial images were obtained of the head. Using automated exposure control and adj ustment of the mA and/or kV according to patient size, radiation dose was kept as low as reasonably a chievable to obtain optimal diagnostic quality images. DICOM format image data is available electro nically for review and comparison. FINDINGS: CEREBRUM: The ventricles, sulci, and basal cisterns are prominent, characteristic is moderately severe central and cortical atrophy.. No evidence of midline shift, mass lesion, hemorrhage or acute infarction. N o extra-axial fluid collections are seen. POSTERIOR FOSSA: The cerebellum and brainstem are intact. The 4th ventricle is midline. The cerebellopontine angle i s unremarkable. EXTRACRANIAL: The visualized portion of the orbits is intact. SKULL: The calvaria is intact. No evidence of skull fracture. CONCLUSION: 1. Moderate severity atrophy. 2. No acute CT findings. No evidence of hemorrhage. Tee Daniels MD on November 12, 2017 at 9:11 Board Certified Radiologist. This report was verified electronically.
[2017-11-12 09:22] LABS: INTERNATIONAL NORMALIZED RATIO 1.4 RATIO; PROTHROMBIN TIME - PATIENT 14.4 SEC (9.8-11.6)
--- NOTE | 2017-11-12 09:34 | PD ---
HPI Chief Complaint: Stroke Alert Time Seen by Provider: 08:54 Travel History International Travel<30 days: No Contact w/Intl Traveler<30days: No Traveled to known affect area: No History of Present Illness HPI 86-year-old male with history of A. fib on Xarelto, CVA, GI bleeds, brought in by ambulance from home as a stroke alert. According to paramedics, the patient had sudden onset slurred speech, right facial droop, right sided weakness at around 8:00 AM this morning while eating breakfast. EMS reports there an NIH scale of 4. Upon arrival to the emergency department the patient's symptoms seemed to have significantly improved. He has slight slurring of speech. He no longer has facial droop or left arm or leg weakness. He is awake and alert and was probably taken to CT scan. Shortly after the patient arrived, the patient's arrived by private vehicle and reports that while eating breakfast this morning the patient had slurring of speech and was unable to feed himself with either of his arms. He has not had any recent illness. 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, SQUAMOUS RIGHT SIDE OF NOSE ) Cardiovascular Problems: Yes (a-fib,pacemaker) High Cholesterol: Yes Chemotherapy: No Chest Pain: No Congestive Heart Failure: Yes COPD: No Cerebrovascular Accident: Yes (TIA 2004) Diabetes: No Diminished Hearing: No Endocrine: No Gastrointestinal Disorders: No GERD: Yes Glaucoma: No Genitourinary: No Hypertension: Yes Immune Disorder: No Implanted Vascular Access Dvce: Yes Musculoskeletal: No Neurologic: Yes Psychiatric: No Reproductive: No Respiratory: No Myocardial Infarction: No Radiation Therapy: No Sickle Cell Disease: No Sleep Apnea: No Thyroid Disease: No Past Surgical History Cardiac Surgery: Yes (PACEMAKER INSERTION 2004, replaced in 2010) Pacemaker: Yes (GUIDANT PACEMAKER 2004, REPLACED 09/03 WITH [employer]) Other Surgery: Yes Social History Alcohol Use: Yes (occas. wine ) Tobacco Use: No Substance Use: No Allergies-Medications (Allergen,Severity, Reaction): Coded Allergies: MRI PRECAUTION (Verified Allergy, Severe, non conditional [employer] pacemaker 11/12/17 kmd, 11/12/17) model k173. Reported Meds & Prescriptions Reported Meds & Active Scripts Active Reported Carvedilol 3.125 Mg Tab 3.125 Mg PO DAILY Entresto (Sacubitril-Valsartan) 49-51 Mg Tab 1 Tab PO BID Omeprazole 20 Mg Tab 20 Mg PO DAILY Xarelto (Rivaroxaban) 20 Mg Tab 20 Mg PO DAILY Furosemide 20 Mg Tab 20 Mg PO DAILY Zocor (Simvastatin) 20 Mg Tab 20 Mg PO DAILY Potassium Chloride ER (Potassium Chloride) 10 Meq Cap 10 Meq PO DAILY Review of Systems Except as stated in HPI: all other systems reviewed are Neg Physical Exam Narrative GENERAL: Well-developed, well-nourished, awake, alert, no apparent distress. SKIN: Focused skin assessment warm/dry. HEAD: Atraumatic. Normocephalic. EYES: Pupils equal and round. No scleral icterus. No injection or drainage. ENT: Mucous membranes pink and moist. NECK: Trachea midline. No JVD. CARDIOVASCULAR: Regular rate and rhythm. No murmur appreciated. RESPIRATORY: No accessory muscle use. Clear to auscultation. Breath sounds equal bilaterally. GASTROINTESTINAL: Abdomen soft, non-tender, nondistended. MUSCULOSKELETAL: No obvious deformities. No clubbing. No cyanosis. No edema. NEUROLOGICAL: Awake and alert. No obvious cranial nerve deficits. Motor grossly within normal limits. Slightly slurred speech. No focal deficits. Normal [id number] test bilaterally. No pronator drift. Normal muscle strength in all 4 extremities. PSYCHIATRIC: Appropriate mood and affect; insight and judgment normal. Data Data Last Documented VS Vital Signs Date Time Temp Pulse Resp B/P (MAP) Pulse Ox O2 Delivery O2 Flow Rate FiO2 11/12/17 10:46 76 20 113/71 (85) 96 11/12/17 09:47 Nasal Cannula 2.00 11/12/17 09:45 98.3 11/12/17 09:00 21 Orders Orders Cath For Specimen (11/12/17 08:57) Neuro Checks Q2HX12,Q4H (11/12/17 08:57) Nursing Bedside Swallow Assess .ONCE (11/12/17 08:57) Activity Bed Rest (11/12/17 08:57) Diet Npo (11/12/17 Breakfast) Prothrombin Time / Inr (Pt) (11/12/17 08:57) Act Partial Throm Time (Ptt) (11/12/17 08:57) Complete Blood Count With Diff (11/12/17 08:57) Basic Metabolic Panel (Bmp) (11/12/17 08:57) Fibrinogen (11/12/17 08:57) Creatine Kinase (Cpk) (11/12/17 08:57) Troponin I (11/12/17 08:57) Ua Includes Microscopic (11/12/17 08:57) Drug Screen, Random Urine (11/12/17 08:57) Type And Screen (11/12/17 08:57) Ct Brain W/O Iv Contrast(Rout) (11/12/17 ) Cta Brain W Iv Contrast W 3d (11/12/17 08:57) Cta Neck W Iv Contrast W 3d (11/12/17 08:57) Electrocardiogram (11/12/17 ) Consult Neurology (11/12/17 08:57) Sodium Chlor 0.9% 1000 Ml Inj (Ns 1000 M (11/12/17 08:57) Blood Glucose (11/12/17 08:57) Ecg Monitoring (11/12/17 08:57) Iv Access Insert/Monitor (11/12/17 08:57) NPO (11/12/17 08:57) Oximetry (11/12/17 08:57) Resp Oxygen Nc Stroke (11/12/17 ) Iodixanol 320 Inj (Rad Ct) (Visipaque 32 (11/12/17 09:41) Influenzae A/B Antigen (11/12/17 09:44) Chest, Single Ap (11/12/17 ) (Hub Use Only)Inp Phy Cons/Ref (11/12/17 ) Aspirin Chew (Aspirin Chew) (11/12/17 10:45) Admit Order (Ed Use Only) (11/12/17 10:53) Admit To Inpatient (11/12/17 ) Vital Signs (Adult) Q4H (11/12/17 10:51) Nih Stroke Scale - Nihss .On admission and discharge (11/12/17 10:51) Ot Request For Service (11/12/17 10:51) Consult Pt Eval & Tx Oob (11/12/17 10:51) Speech Therapy Consult-Eval/Tx (11/12/17 10:51) Case Management Consult (11/12/17 ) Activity Bed Rest (11/12/17 10:51) Nursing Bedside Swallow Assess .ONCE (11/12/17 10:51) Scd Bilateral/Knee High SHERRIE.QSHIFT (11/12/17 10:51) Diet Npo (11/12/17 Lunch) Hemoglobin (Hgb) A1c (11/12/17 10:51) Lipid Profile (11/13/17 06:00) Resp Oxygen Nc Stroke (11/12/17 ) ^ Hold Medication (11/12/17 10:51) Sodium Chloride 0.9% Flush (Ns Flush) (11/12/17 21:00) Sodium Chloride 0.9% Flush (Ns Flush) (11/12/17 11:00) Bedside Glucose SHERRIE.CSUGAR (11/12/17 10:51) Superintendent Mechanical / Telemetry SHERRIE.Q8H (11/12/17 10:51) Consult Stroke Navigator (11/12/17 ) Labs Laboratory Tests Test 11/12/17 08:50 11/12/17 10:00 White Blood Count 5.2 TH/MM3 Red Blood Count 4.33 MIL/MM3 Hemoglobin 13.3 GM/DL Hematocrit 39.3 % Mean Corpuscular Volume 90.9 FL Mean Corpuscular Hemoglobin 30.7 PG Mean Corpuscular Hemoglobin Concent 33.8 % Red Cell Distribution Width 13.3 % Platelet Count 227 TH/MM3 Mean Platelet Volume 8.9 FL Neutrophils (%) (Auto) 65.9 % Lymphocytes (%) (Auto) 20.8 % Monocytes (%) (Auto) 10.5 % Eosinophils (%) (Auto) 2.1 % Basophils (%) (Auto) 0.7 % Neutrophils # (Auto) 3.5 TH/MM3 Lymphocytes # (Auto) 1.1 TH/MM3 Monocytes # (Auto) 0.5 TH/MM3 Eosinophils # (Auto) 0.1 TH/MM3 Basophils # (Auto) 0.0 TH/MM3 CBC Comment DIFF FINAL Differential Comment Prothrombin Time 14.4 SEC Prothromb Time International Ratio 1.4 RATIO Activated Partial Thromboplast Time 35.0 SEC Fibrinogen 368 mg/dL Blood Urea Nitrogen 14 MG/DL Creatinine 1.20 MG/DL Random Glucose 119 MG/DL Calcium Level 8.2 MG/DL Sodium Level 139 MEQ/L Potassium Level 4.1 MEQ/L Chloride Level 103 MEQ/L Carbon Dioxide Level 27.0 MEQ/L Anion Gap 9 MEQ/L Estimat Glomerular Filtration Rate 57 ML/MIN Hemoglobin A1c 5.6 % Total Creatine Kinase 26 U/L Troponin I LESS THAN 0.02 NG/ML Vitamin B12 Level 226 PG/ML Folate 13.1 NG/ML Thyroid Stimulating Hormone 3rd Gen 2.340 uIU/ML Urine Collection Type CATH Urine Color STRAW Urine Turbidity CLEAR Urine pH 7.0 Urine Specific Reyno 1.027 Urine Protein NEG mg/dL Urine Glucose (UA) NEG mg/dL Urine Ketones NEG mg/dL Urine Occult Blood SMALL Urine Nitrite NEG Urine Bilirubin NEG Urine Leukocyte Esterase NEG Urine Squamous Epithelial Cells 0-1 /hpf Microscopic Urinalysis Comment Urine Opiates Screen NEG Urine Barbiturates Screen NEG Urine Amphetamines Screen NEG Urine Benzodiazepines Screen NEG Urine Cocaine Screen NEG Urine Cannabinoids Screen NEG MDM Medical Screen Exam Complete: Yes Emergency Medical Condition: Yes EKG Prior to Arrival: No Differential Diagnosis CVA, ICH, metabolic abnormality Narrative Course Stroke alert initiated by paramedics. Upon arrival to the emergency department the patient's symptoms seemed to have significantly improved. He has slight slurring of speech. No facial droop. No focal deficits or weakness. 9:00 AM: Case discussed with on-call neurologist Dr. Cook. Patient is on Xarelto for A. fib. Because of this and because of improving symptoms, he is not a candidate for TPA. The patient and the patient's were made aware of this. 9:10 AM: I was notified by the reading radiologist that the patient has severe atrophy, no acute findings on his CT head. EKG: Electronic ventricular paced, rate 71 10:26 AM: I was contacted by radiologist Dr. Smith who states that on the CTA brain there are no lesions amenable to thrombectomy. Vital signs show heart rate 81, blood pressure 125/93, pulse ox 92% on room air , 96% on 2 L nasal cannula, oral temp of 98.3F. CBC is unremarkable. BMP is unremarkable. Cardiac enzymes are negative. 10:52 AM: Case discussed with hospitalist Dr. Westbrook who will admit the patient to her service for further treatment and evaluation. Stroke Alert NIHSS NIH Stroke Scale Result: 1 NIHSS Time Completed: 09:10 Diagnosis Diagnosis: Primary Impression: TIA (transient ischemic attack) Qualified Codes: G45.9 - Transient cerebral ischemic attack, unspecified Admitting Physician Requests: Admit Boyd Montoya MD Nov 12, 2017 09:34
[2017-11-12] MEDS ORDERED: IODIXANOL 320 MG/ML 10 ML VIAL (for Rad CT) IVCONTRAST ONE (09:41)
[2017-11-12 09:51] LABS: CHLORIDE 103 MEQ/L (98-107); SODIUM (NA) 139 MEQ/L (136-145)
[2017-11-12] MEDS ORDERED: OMEP20TA93 PO (09:57)
[2017-11-12] MEDS ORDERED: CARV3.12 PO (09:57)
[2017-11-12] MEDS ORDERED: SACU1TAB7 PO (09:57)
[2017-11-12 10:08] LABS: CALCIUM 8.2 MG/DL (8.5-10.1)
[2017-11-12 10:09] LABS: BLOOD UREA NITROGEN 14 MG/DL (7-18); GLUCOSE,RANDOM 119 MG/DL (74-106)
[2017-11-12 10:12] LABS: GLOMERULAR FILTRATION RATE 57 ML/MIN (>89)
[2017-11-12 10:16] LABS: TROPONIN I LESS THAN 0.02 NG/ML (0.02-0.05)
[2017-11-12 10:21] LABS: BILIRUBIN, URINE NEG (NEG); BLOOD, URINE SMALL (NEG); GLUCOSE,URINE NEG (NEG); KETONE, URINE NEG (NEG); NITRITE,URINE NEG (NEG); URINE LEUKOCYTE ESTERASE NEG (NEG)
[2017-11-12 10:29] LABS: URINE COLOR STRAW (YELLW/STRAW)
[2017-11-12 10:31] LABS: SQUAMOUS EPITHELIAL CELL URINE 0-1 /hpf (0-5)
--- NOTE | 2017-11-12 10:44 | RADRPT ---
EXAM DATE/TIME: 11/12/2017 09:16 [facility] COMPARISON: CTA BRAIN W 3D RECON, January 16, 2010, 17:55. INDICATIONS : Stroke alert. Left sided weakness, facial droop and slurred speech. IV CONTRAST: 85 cc Visipaque (iodixanol) IV ; Cumulative dose for multiple exams. RADIATION DOSE: 42.20 CTDIvol (mGy) ; Combined studies MEDICAL HISTORY : Non-responsive. SURGICAL HISTORY : Non-responsive. ENCOUNTER: Initial ACUITY: 1 day PAIN SCALE: 0/10 LOCATION: cranial TECH NOTE: Call [id number] Dr [address] [phone] Labs were not ready so Dr Montoya said to scan without labs TECHNIQUE: Volumetric scanning was performed using a multi-row detector CT scanner. The data was post processed with a variety of visualization algorithms including full volume maximum intensity projection, multi -planar sliding thin slab reformation, curved planar reformation, and surface rendering techniques. Using automated exposure control and adjustment of the mA and/or kV according to patient size, radiat ion dose was kept as low as reasonably achievable to obtain optimal diagnostic quality images. DICO M format image data is available electronically for review and comparison. FINDINGS: There is excellent visualization of the major intracranial arteries out to the second-order branch ve ssels. No filling defects observed suggest emboli or thrombus. Atherosclerotic plaque is seen involv ing the intercavernous ICAs bilaterally without a hemodynamically significant stenosis. Mild luminal narrowing involving the proximal right P1 segment. This is stable. There is no evidence for aneurysm, vessel truncation or vascular malformation. CONCLUSION: 1. No embolus or thrombus observed. Tee Smith Jr., MD on November 12, 2017 at 10:21 Board Certified Radiologist. This report was verified electronically.
[2017-11-12] MEDS ORDERED: ASPIRIN 81 MG CHEW TAB CHEW ONE (10:45)
--- NOTE | 2017-11-12 10:46 | RADRPT ---
EXAM DATE/TIME: 11/12/2017 09:16 [facility] COMPARISON: No previous studies available for comparison. INDICATIONS : Stroke alert. Left sided weakness, facial droop and slurred speech. IV CONTRAST: 85 cc Visipaque (iodixanol) IV ; Cumulative dose for multiple exams. RADIATION DOSE: 42.20 CTDIvol (mGy) ; Combined studies MEDICAL HISTORY : None SURGICAL HISTORY : None. ENCOUNTER: Initial ACUITY: 1 day PAIN SCALE: 0/10 LOCATION: neck Elevated flow velocities and ICA/CCA ratios have been found to correlate with increased degrees of vessel stenosis, calculated as percentage of diameter relative to a normal segment of distal ICA/CCA. TECHNIQUE: Volumetric scanning was performed using a multirow detector CT scanner. The data was post processed with a variety of visualization algorithms including full-volume maximum intensity projection, multip lanar sliding thin-slab reformation, curved-planar reformation, and surface-rendering techniques. Us ing automated exposure control and adjustment of the mA and/or kV according to patient size, radiatio n dose was kept as low as reasonably achievable to obtain optimal diagnostic quality images. DICOM f ormat image data is available electronically for review and comparison. FINDINGS: AORTIC ARCH: There is a three-vessel origin of the great vessels from the aorta. No evidence of ostial narrowing. RIGHT CAROTID: The common carotid artery is intact. The carotid bulb has a normal configuration without ulceration o r narrowing. The internal carotid artery lumen is smooth without stenosis. The external carotid bennie ry is intact. LEFT CAROTID: The common carotid artery is intact. The carotid bulb has a normal configuration without ulceration or narrowing. The internal carotid artery lumen is smooth without stenosis. The external carotid ar carl is intact. VERTEBRALS: The vertebral arteries have a symmetric diameter. No stenotic lesions are seen. CONCLUSION: 1. Patent carotid arteries and vertebral arteries bilaterally. Tee Smith Jr., MD on November 12, 2017 at 10:42 Board Certified Radiologist. This report was verified electronically.
--- NOTE | 2017-11-12 10:53 | RADRPT ---
EXAM DATE/TIME: 11/12/2017 09:58 [facility] COMPARISON: CHEST PA & LAT, January 08, 2012, 9:32. INDICATIONS : Short of Breath MEDICAL HISTORY : Cardiovascular disease. SURGICAL HISTORY : Pacemaker. ENCOUNTER: Initial ACUITY: 1 day PAIN SCORE: 0/10 LOCATION: chest FINDINGS: Heart is enlarged. There is a transvenous pacer in good position. There are chronic appearing interst itial changes. The visualized osseous structures are grossly intact. CONCLUSION: 1. Cardiomegaly with chronic appearing interstitial changes. No acute abnormality identified. Giovanny Trujillo MD on November 12, 2017 at 10:21 Board Certified Radiologist. This report was verified electronically.
[2017-11-12] MEDS ORDERED: SODIUM CHLORIDE 0.9% FLUSH 10 ML FLUSH IV FLUSH PRN (11:00)
--- NOTE | 2017-11-12 14:04 | HHI.HP ---
[facility] Donald Smith MD Admission Diagnosis TIA Diagnoses: (1) Cerebrovascular accident Diagnosis: Principal (2) Slurred speech Diagnosis: Principal Chief Complaint: Dizziness, slurred speech, unilateral weakness Travel History International Travel<30 Days: No Contact w/Intl Traveler <30 Da: No Traveled to Known Affected Are: No History of Present Illness 86 year-old male with known history of hypertension, hyperlipidemia, chronic atrial fibrillation, history of TIA who presented to hospital because of acute neurological symptoms. Most information was taken from at bedside secondary to patient having difficulty with speech and cognition. As indicated by the that the patient was in his normal state of health when he woke up this morning. He was doing his normal morning routine, he went to have his morning constitutional and then when he came out of the bathroom he had significant dizziness and difficulty with ambulating. He started developing slurred speech. The states that she was a nurse and she did not want to drive him to the hospital so she called [facility]. She indicated the patient was experiencing right sided deficits where she tried to put the 4 kids right hand but he was not able to steel box toe inserter it. However he was able to steel box toe inserter with his left hand. He was not able to feed himself today. Patient was brought to the emergency department and stroke alert was called. NIH score was 4. Neurologist was called and indicated patient was not a candidate for TPA secondary to patient being on Xarelto. Patient was given aspirin and CTs were performed of the head and neck. No acute abnormality was found. No findings on CTA that could benefit from radiological intervention. Patient was recommended admission for further workup and evaluation. At the time evaluating the patient he still is having some speech difficulties. He is having orientation difficulties, he does know his self. He knows his date of . Could not tell me the month or year. Cannot tell me that the [place] was yesterday. He only indicated that it was the big race. Review of Systems Neurologic: COMPLAINS OF: Abnormal gait, Localized weakness, Speech Problems, Poor Balance Except as stated in HPI: all other systems reviewed are Neg Past Family Social History Past Medical History Hypertension Hyperlipidemia Chronic atrial fibrillation History of basal cell carcinoma History of congestive heart failure History TIA in 2004 Gastroesophageal reflux Past Surgical History Pacemaker placement Reported Medications Reported Meds & Active Scripts Active Reported Carvedilol 3.125 Mg Tab 3.125 Mg PO DAILY Entresto (Sacubitril-Valsartan) 49-51 Mg Tab 1 Tab PO BID Omeprazole 20 Mg Tab 20 Mg PO DAILY Xarelto (Rivaroxaban) 20 Mg Tab 20 Mg PO DAILY Furosemide 20 Mg Tab 20 Mg PO DAILY Zocor (Simvastatin) 20 Mg Tab 20 Mg PO DAILY Potassium Chloride ER (Potassium Chloride) 10 Meq Cap 10 Meq PO DAILY Allergies: Coded Allergies: MRI PRECAUTION (Verified Allergy, Severe, non conditional [employer] pacemaker 11/12/17 kmd, 11/12/17) model k173. Family History Reviewed is significant for mother having breast cancer, father from heart disease Social History Patient does drink alcohol occasionally. Denies any tobacco or illicit drugs Physical Exam Vital Signs Vital Signs Date Time Temp Pulse Resp B/P (MAP) Pulse Ox O2 Delivery O2 Flow Rate FiO2 11/12/17 13:23 97.6 65 16 140/65 (90) 99 Nasal Cannula 2.00 11/12/17 13:23 Nasal Cannula 2.00 21 11/12/17 12:17 66 16 133/63 (86) 97 Nasal Cannula 2.00 11/12/17 10:46 76 20 113/71 (85) 96 11/12/17 09:47 96 Nasal Cannula 2.00 11/12/17 09:47 96 11/12/17 09:45 98.3 81 20 125/93 (104) 95 11/12/17 09:00 92 21 11/12/17 09:00 Nasal Cannula 2.00 Physical Exam GENERAL: Well-developed, well-nourished, in no acute distress. alert. Orientated to person, place. He is not completely orientated to month, year, current events HEENT: Head is normocephalic without any lesions or masses noted. Facial features are symmetric. Eyes: Pupils equal round reactive to light. Extraocular muscles are intact. Conjunctivae were clear. Oropharyngeal: Pharynx without any erythema edema. Tongue is midline without deviation. Buccal mucosa is moist without any masses or lesions NECK: Supple without any masses. Trachea midline no deviation. No JVD, no bruits are appreciated CARDIAC: Regular rhythm, regular rate. S1/S2 are heard. No murmurs gallops or rubs. LUNGS: Clear to auscultation bilaterally. No wheeze, rhonchi or rales. No use of accessory muscles on inspiration or expiration. ABDOMEN: Soft, nontender. Nondistended. Bowel sounds heard in all 4 quadrants. No organomegaly or masses. Negative rebound, negative guarding EXTREMITIES: No edema, pulses are equal bilaterally. No cyanosis or clubbing NEUROLOGY: Mood and affect appear appropriate. Patient continues with slurred speech. Muscle strength 5/5 in upper extremities bilaterally. Deep tendon reflexes are 2+ in upper and lower extremities bilaterally. Minimal delayed plantar reflex response of the right lower extremity as compared to the left Laboratory Laboratory Tests Test 11/12/17 08:50 11/12/17 10:00 White Blood Count 5.2 Red Blood Count 4.33 Hemoglobin 13.3 Hematocrit 39.3 Mean Corpuscular Volume 90.9 Mean Corpuscular Hemoglobin 30.7 Mean Corpuscular Hemoglobin Concent 33.8 Red Cell Distribution Width 13.3 Platelet Count 227 Mean Platelet Volume 8.9 Neutrophils (%) (Auto) 65.9 Lymphocytes (%) (Auto) 20.8 Monocytes (%) (Auto) 10.5 Eosinophils (%) (Auto) 2.1 Basophils (%) (Auto) 0.7 Neutrophils # (Auto) 3.5 Lymphocytes # (Auto) 1.1 Monocytes # (Auto) 0.5 Eosinophils # (Auto) 0.1 Basophils # (Auto) 0.0 CBC Comment DIFF FINAL Differential Comment Prothrombin Time 14.4 Prothromb Time International Ratio 1.4 Activated Partial Thromboplast Time 35.0 Fibrinogen 368 Blood Urea Nitrogen 14 Creatinine 1.20 Random Glucose 119 Calcium Level 8.2 Sodium Level 139 Potassium Level 4.1 Chloride Level 103 Carbon Dioxide Level 27.0 Anion Gap 9 Estimat Glomerular Filtration Rate 57 Total Creatine Kinase 26 Troponin I LESS THAN 0.02 Urine Collection Type CATH Urine Color STRAW Urine Turbidity CLEAR Urine pH 7.0 Urine Specific [place] 1.027 Urine Protein NEG Urine Glucose (UA) NEG Urine Ketones NEG Urine Occult Blood SMALL Urine Nitrite NEG Urine Bilirubin NEG Urine Leukocyte Esterase NEG Urine Squamous Epithelial Cells 0-1 Microscopic Urinalysis Comment Urine Opiates Screen NEG Urine Barbiturates Screen NEG Urine Amphetamines Screen NEG Urine Benzodiazepines Screen NEG Urine Cocaine Screen NEG Urine Cannabinoids Screen NEG Date/Time Source Procedure Growth Status 11/12/17 10:00 Nasal Washing Influenza Types A,B Antigen (GRACE) - Final NEGATIVE FOR FLU A AND B ANTIGEN.... Complete Result Diagram: 11/12/17 0850 11/12/17 0850 Imaging Last Impressions Neck CTA 11/12/17 0857 Signed Impressions: Service Date/Time: Sunday, November 12, 2017 09:16 - CONCLUSION: 1. Patent carotid arteries and vertebral arteries bilaterally. Tee Smith Jr., MD Head CTA 11/12/17 0857 Signed Impressions: Service Date/Time: Sunday, November 12, 2017 09:16 - CONCLUSION: 1. No embolus or thrombus observed. Tee Smith Jr., MD Head CT 11/12/17 0000 Signed Impressions: Service Date/Time: Sunday, November 12, 2017 08:57 - CONCLUSION: 1. Moderate severity atrophy. 2. No acute CT findings. No evidence of hemorrhage. Tee Daniels MD Chest X-Ray 11/12/17 0000 Signed Impressions: Service Date/Time: Sunday, November 12, 2017 09:58 - CONCLUSION: 1. Cardiomegaly with chronic appearing interstitial changes. No acute abnormality identified. Giovanny Trujillo MD Caprini VTE Risk Assessment Caprini VTE Risk Assessment: Mod/High Risk (score >= 2) Caprini Risk Assessment Model Point Value = 1 Point Value = 2 Point Value = 3 Point Value = 5 Age 41-60 Minor surgery BMI > 25 kg/m2 Swollen legs Varicose veins or History of unexplained or recurrent spontaneous Oral contraceptives or hormone replacement Sepsis (< 1 month) Serious lung disease, including pneumonia (< 1 month) Abnormal pulmonary function Acute myocardial infarction Congestive heart failure (< 1 month) History of inflammatory bowel disease Medical patient at bed rest Age 61-74 Arthroscopic surgery Major open surgery (> 45 min) Laparoscopic surgery (> 45 min) Malignancy Confined to bed (> 72 hours) Immobilizing plaster cast Central venous access Age >= 75 History of VTE Family history of VTE Factor V Leiden Prothrombin [id number] Lupus anticoagulant Anticardiolipin antibodies Elevated serum homocysteine Heparin-induced thrombocytopenia Other congenital or acquired thrombophilia Stroke (< 1 month) Elective arthroplasty Hip, pelvis, or leg fracture Acute spinal cord injury (< 1 month) Prophylaxis Regimen Total Risk Factor Score Risk Level Prophylaxis Regimen 0-1 Low Early ambulation 2 Moderate Order ONE of the following: *Sequential Compression Device (SCD) *Heparin 5000 units SQ BID 3-4 Higher Order ONE of the following medications: *Heparin 5000 units SQ TID *Enoxaparin/Lovenox 40 mg SQ daily (WT < 150 kg, CrCl > 30 mL/min) *Enoxaparin/Lovenox 30 mg SQ daily (WT < 150 kg, CrCl > 10-29 mL/min) *Enoxaparin/Lovenox 30 mg SQ BID (WT < 150 kg, CrCl > 30 mL/min) AND/OR *Sequential Compression Device (SCD) 5 or more Highest Order ONE of the following medications: *Heparin 5000 units SQ TID (Preferred with Epidurals) *Enoxaparin/Lovenox 40 mg SQ daily (WT < 150 kg, CrCl > 30 mL/min) *Enoxaparin/Lovenox 30 mg SQ daily (WT < 150 kg, CrCl > 10-29 mL/min) *Enoxaparin/Lovenox 30 mg SQ BID (WT < 150 kg, CrCl > 30 mL/min) AND *Sequential Compression Device (SCD) Assessment and Plan Assessment and Plan 86-year-old rather pleasant gentleman who presented because acute onset of neurological deficits with slurred speech, cognition deficits. He was a stroke alert Acute cerebrovascular accident Patient with a stroke alert with NIH 2 and not a candidate for any TPA due to Xarelto No radiological findings that could benefit from any radiological intervention CT of the brain does not indicate any acute abnormality CTA of the brain does not indicate any acute abnormalities CTA of the neck does not indicate any carotid artery abnormality or vertebral artery abnormality Patient unable to perform MRI study secondary to pacemaker Physical therapy/occupational therapy/speech therapy evaluations Hemoglobin A1c, lipid panel pending Obtain further studies to include sedimentation rate, B12, folate, TSH Neurology consulted for stroke alert Patient was given full dose aspirin in the emergency department Patient already anticoagulated on Xarelto, will defer further anticoagulation to neurology Hypertension, hyperlipidemia, chronic atrial fibrillation Permissive hypertension Lipid panel being obtained Resume statin DVT prevention patient is on Xarelto Physician Certification 2 Midnight Certification Type: Admission for Inpatient Services Order for Inpatient Services The services are ordered in accordance with Medicare regulations or non- Medicare payer requirements, as applicable. In the case of services not specified as inpatient-only, they are appropriately provided as inpatient services in accordance with the 2-midnight benchmark. Estimated LOS (days): 2 days is the estimated time the patient will need to remain in the hospital, assuming treatment plan goals are met and no additional complications. Post-Hospital Plan: Not yet determined Noel Urbina Nov 12, 2017 14:04
--- NOTE | 2017-11-12 16:56 | MB ---
cc: SARINA HOUSTON M.D. DATE OF CONSULTATION 11/12/2017 HISTORY Mr. Valenzuela is an 86-year-old seen in neurological consultation. The patient was still in the emergency room when I saw him about an hour or so ago. I spoke to the ED physician earlier today when he came in as a stroke alert. His observed some slurring of speech and apparent right-sided weakness when he was eating breakfast around 8 o'clock in the morning. He came to the hospital fairly quickly and his symptoms had improved significantly. Initially the NIH stroke scale was 4. The patient might have had some fluctuation of deficits while in the emergency room. A CT brain was negative. He had been on Xarelto therefore he was excluded from TPA. We did CT angio head and neck which are reporting no significant abnormalities. Therefore no interventional radiology to be called in taking into consideration this finding and also a relatively low stroke scale. PAST MEDICAL HISTORY 1. He has a history of atrial fibrillation. 2. He also has a pacemaker. 3. Hypertension. 4. Hyperlipidemia. MEDICATIONS 1. Xarelto. 2. Omeprazole. 3. Carvedilol. 4. Entresto. 5. Lasix. 6. Zocor. 7. Potassium. NEUROLOGICAL EXAMINATION Showed the patient to be awake, alert, grossly oriented, pleasant, cooperative and speech is very mildly dysarthric. No obvious facial asymmetry. No sensory deficits. No arm drift. He resisted well on the bedside exam. Reflexes diminished, symmetrical 1+, plantar responses flexor. LABORATORY DATA The blood work has an unremarkable CBC. Chemistry with also basic chemistry being unremarkable, glucose 119. Sodium and potassium normal. ASSESSMENT Ischemic cerebrovascular event, atrial fibrillation and the patient has been on Xarelto. Therefore not a candidate for TPA. Aspirin was given. I plan on doing a follow up CT brain in 24 hours or so. MRI brain probably not feasible as reportedly there is a pacemaker history. CT angio head and neck showing no significant vascular disease. Checking lipid profile. Continue Xarelto, aspirin and statin. I will follow the neurological course. Thank you for asking us to assist in his care. MD JOE Abbott/ISRRAEL /2:55 PM /4:37 PM
[2017-11-12 17:13] LABS: FOLATE 13.1 NG/ML (3.1-17.5)
[2017-11-12 17:31] LABS: HEMOGLOBIN A1C 5.6 % (4.3-6.0)
[2017-11-12] MEDS: SODIUM CHLORIDE 0.9% FLUSH 10 ML FLUSH IV FLUSH SCH (20:42)
--- NOTE | 2017-11-12 22:49 | EKG ---
Date Performed: 11/12/2017 Time Performed: 09:48:22 PTAGE: 86 years EKG: ELECTRONIC VENTRICULAR PACEMAKER ABNORMAL RHYTHM ECG PREVIOUS TRACING : 01/07/2012 03.11 DOCTOR: Mayco Miranda Interpretating Date/Time 11/12/2017 22:45:44
[2017-11-13] VITALS (11 sets, daily range): BP systolic 107–135; BP diastolic 54–72; PULSE 66–76; RESP 18–20; TEMP 96.2–98.3; O2SAT 88–97
[2017-11-13] MEDS: SODIUM CHLORIDE 0.9% FLUSH 10 ML FLUSH IV FLUSH SCH ×2 (09:00→21:30)
[2017-11-13] MEDS ORDERED: ASPIRIN EC 81 MG TABEC PO SCH (10:00)
[2017-11-13] MEDS: FUROSEMIDE 20 MG TAB PO SCH (10:53)
[2017-11-13] MEDS: RIVAROXABAN 20 MG TAB PO SCH (10:53)
[2017-11-13] MEDS: ASPIRIN EC 81 MG TABEC PO SCH (10:53)
[2017-11-13 10:54] LABS: CHOLESTEROL/ HDL RATIO 3.21 RATIO
[2017-11-13] MEDS: PANTOPRAZOLE SOD 20 MG DELAYED RELEASE TAB PO SCH (10:54)
[2017-11-13] MEDS: CARVEDILOL 3.125 MG TAB PO SCH (10:54)
[2017-11-13] MEDS: ATORVASTATIN 40 MG TAB PO SCH (10:54)
[2017-11-13] MEDS: SACUBITRIL/VALSARTAN 49 MG-51 MG TAB PO SCH ×2 (11:59→21:00)
--- NOTE | 2017-11-13 12:32 | HHI.PR ---
Subjective Remarks Seen and evaluated in follow-up for acute stroke. Doing better today. Symptoms appear to be continuing to be resolving. Awaiting echocardiogram. Care plan discussed with [facility] nursing team and with family as well as physical therapy Objective Vitals Vital Signs Date Time Temp Pulse Resp B/P (MAP) Pulse Ox O2 Delivery O2 Flow Rate FiO2 11/13/17 12:00 98.3 75 20 127/66 (86) 97 11/13/17 11:48 94 Nasal Cannula 2.00 11/13/17 09:30 Nasal Cannula 2.00 11/13/17 07:58 96.2 66 20 128/72 (90) 95 11/13/17 04:00 97.2 73 20 121/65 (83) 96 11/13/17 00:35 97.8 70 18 122/70 (87) 96 11/12/17 23:30 74 11/12/17 21:30 94 Nasal Cannula 2.00 11/12/17 20:00 96.3 71 18 122/79 (93) 97 11/12/17 20:00 97 Nasal Cannula 2.00 11/12/17 15:30 11/12/17 15:30 96.9 68 16 127/70 (89) 97 11/12/17 14:41 69 16 135/80 (98) 99 Room Air 11/12/17 13:23 97.6 65 16 140/65 (90) 99 Nasal Cannula 2.00 11/12/17 13:23 Nasal Cannula 2.00 21 I/O 11/12/17 11/12/17 11/12/17 11/13/17 11/13/17 11/13/17 07:00 15:00 23:00 07:00 15:00 23:00 Intake Total 1240 ml Output Total 700 ml 700 ml Balance -700 ml 540 ml Intake Oral 240 ml IV Total 1000 ml Output Urine Total 700 ml 700 ml # Voids 3 # Bowel Movements 0 Result Diagram: 11/12/1750 11/12/1750 Imaging Last Impressions Neck CTA 11/12/17856 Signed Impressions: Service Date/Time: Sunday, November 12, 2017 09:16 - CONCLUSION: 1. Patent carotid arteries and vertebral arteries bilaterally. Tee Smith Jr., MD Head CTA 11/12/1757 Signed Impressions: Service Date/Time: Sunday, November 12, 2017 09:16 - CONCLUSION: 1. No embolus or thrombus observed. Tee Smith Jr., MD Head CT 11/12/17 0000 Signed Impressions: Service Date/Time: Sunday, November 12, 2017 08:57 - CONCLUSION: 1. Moderate severity atrophy. 2. No acute CT findings. No evidence of hemorrhage. Tee Daniels MD Chest X-Ray 11/12/17 0000 Signed Impressions: Service Date/Time: Sunday, November 12, 2017 09:58 - CONCLUSION: 1. Cardiomegaly with chronic appearing interstitial changes. No acute abnormality identified. Giovanny Trujillo MD Objective Remarks GENERAL: This is a well-nourished, well-developed patient, in no apparent distress. CARDIOVASCULAR: Regular rate and rhythm without murmurs, gallops, or rubs. RESPIRATORY: Clear to auscultation. Breath sounds equal bilaterally. No wheezes , rales, or rhonchi. GASTROINTESTINAL: Abdomen soft, non-tender, nondistended. Normal active bowel sounds MUSCULOSKELETAL: Extremities without clubbing, cyanosis, or edema. NEURO: Alert & Oriented x4 to person, place, time, situation. Moves all ext x4 A/P Problem List: (1) Cerebrovascular accident ICD Code: I63.9 - Cerebral infarction, unspecified Plan: Continue to follow echocardiogram, on telemetry Continue Xarelto and aspirin Continue with rehabilitation (2) Afib ICD Code: I48.91 - Unspecified atrial fibrillation Plan: Patient to continue his Xarelto Currently rate controlledOn Coreg (3) Congestive heart failure ICD Code: I50.9 - Heart failure, unspecified Plan: Without acute exacerbation, continue entresto and Lasix Discharge Planning Likely discharge in a.m. with home healthcare Kavitha Westbrook MD Nov 13, 2017 12:32
--- NOTE | 2017-11-13 12:33 | HHI.FF ---
Face to Face Verification Diagnosis: (1) Cerebrovascular accident Physical Therapy Order: Evaluate and Treat, Improve ambulation Occupational Therapy Order: Evaluate and Treat, Improve ADL, Gross motor coordination Speech Therapy Order: To Improve: Speech and communication skills, Swallowing Home Health Nursing Order: Medical education Signs/symptoms of disease process I have seen patient Isidro ValenzuelaJr on 11/13/17. My clinical findings support the need for the requested home health care services because: Ltd mobility - disease progression Deconditioned w/ increased weakness I certify that my clinical findings support that this patient is homebound because: Unsteady gait/balance Poor cardiac reserve Kavitha Westbrook MD Nov 13, 2017 12:33
[2017-11-13] MEDS ORDERED: WALKER WHEELS/F1 MIS (12:34)
--- NOTE | 2017-11-13 16:37 | RADRPT ---
EXAM DATE/TIME: 11/13/2017 15:50 [facility] COMPARISON: CT BRAIN W/O CONTRAST, November 12, 2017, 8:57. INDICATIONS : Follow up stroke alert. RADIATION DOSE: 58.01 CTDIvol (mGy) MEDICAL HISTORY : Cerebrovascular disease. Cardiovascular disease Hypertension. SURGICAL HISTORY : Pacemaker. ENCOUNTER: Subsequent ACUITY: 2 days PAIN SCALE: 0/10 LOCATION: cranial TECHNIQUE: Multiple contiguous axial images were obtained of the head. Using automated exposure control and adjustment of the mA and/or kV according to patient size, radiation dose was kept as low as reasonably achievable to obtain optimal diagnostic quality images. DICOM format image data is av ailable electronically for review and comparison. FINDINGS: Noncontrast axial head CT demonstrates the ventricles to be enlarged with a prominent sulcal pattern compatible with atrophy. No acute intracranial hemorrhage, acute cortical infarction, mass or midline shift is seen. Posterior fossa structures are unremarkable. Bone windows demonstrate no abnormality. CONCLUSION: Atrophy. No evidence of acute intracranial pathology. Jacky Hope MD on November 13, 2017 at 16:34 Board Certified Radiologist. This report was verified electronically.
--- NOTE | 2017-11-13 17:31 | HHI.PR ---
Review/Management Daily Summary 11/13 doing well overall seems sl confused but probably baseline at bedside ct brain f/u negative xarelto, statin, baby asa home soon from neuro stand point Subjective Subjective Comments No acute events reported No headache Active Medications Current Medications Medications (Trade) Dose Ordered Sig/Angel Route Start Time Stop Time Status Last Admin (NS Flush) 2 ml BID IV FLUSH 11/12/17 21:00 11/13/17 09:00 (NS Flush) 2 ml UNSCH PRN IV FLUSH 11/12/17 11:00 (Coreg) 3.125 mg DAILY PO 11/13/17 11:00 11/13/17 10:54 (Lasix) 20 mg DAILY PO 11/13/17 11:00 11/13/17 10:53 (Xarelto) 20 mg DAILY PO 11/13/17 11:00 11/13/17 10:53 (Entresto 49-51 Mg) 1 tab BID PO 11/13/17 12:00 11/13/17 11:59 (Protonix) 20 mg DAILY PO 11/13/17 11:00 11/13/17 10:54 (Lipitor) 40 mg DAILY PO 11/13/17 11:00 11/13/17 10:54 (Ecotrin Ec) 81 mg DAILY PO 11/13/17 11:00 11/13/17 10:53 Allergies Allergies Coded Allergies MRI PRECAUTION (Verified Allergy, Severe, non conditional [employer] pacemaker 11/12/17 kmd, 11/12/17) Exam I&O / VS 11/13/17 11/13/17 11/14/17 15:00 23:00 07:00 Intake Total 960 ml Output Total 200 ml Balance 760 ml Intake Oral 960 ml Output Urine Total 200 ml Vital Signs Date Time Temp Pulse Resp B/P (MAP) Pulse Ox O2 Delivery O2 Flow Rate FiO2 11/13/17 16:25 93 11/13/17 16:00 97.1 76 20 107/54 (71) 92 11/13/17 12:00 98.3 75 20 127/66 (86) 97 11/13/17 11:48 94 Nasal Cannula 2.00 11/13/17 09:30 Nasal Cannula 2.00 11/13/17 07:58 96.2 66 20 128/72 (90) 95 11/13/17 04:00 97.2 73 20 121/65 (83) 96 11/13/17 00:35 97.8 70 18 122/70 (87) 96 11/12/17 23:30 74 11/12/17 21:30 94 Nasal Cannula 2.00 11/12/17 20:00 96.3 71 18 122/79 (93) 97 11/12/17 20:00 97 Nasal Cannula 2.00 Objective Radiology Results Last [address] 11/13/17 0000 Signed Impressions: Service Date/Time: Monday, November 13, 2017 15:50 - CONCLUSION: Atrophy. No evidence of acute intracranial pathology. Jacky Hope MD Neck CTA 11/12/17 0857 Signed Impressions: Service Date/Time: Sunday, November 12, 2017 09:16 - CONCLUSION: 1. Patent carotid arteries and vertebral arteries bilaterally. Tee Smith Jr., MD Head CTA 11/12/17 0857 Signed Impressions: Service Date/Time: Sunday, November 12, 2017 09:16 - CONCLUSION: 1. No embolus or thrombus observed. Tee Smith Jr., MD Head CT 11/12/17 0000 Signed Impressions: Service Date/Time: Sunday, November 12, 2017 08:57 - CONCLUSION: 1. Moderate severity atrophy. 2. No acute CT findings. No evidence of hemorrhage. Tee Daniels MD Chest X-Ray 11/12/17 0000 Signed Impressions: Service Date/Time: Sunday, November 12, 2017 09:58 - CONCLUSION: 1. Cardiomegaly with chronic appearing interstitial changes. No acute abnormality identified. Giovanny Trujillo MD Micro and Labs Laboratory Tests Test 11/13/17 05:10 Triglycerides Level 82 Cholesterol Level 103 LDL Cholesterol 55 HDL Cholesterol 32.0 Cholesterol/HDL Ratio 3.21 Date/Time Source Procedure Growth Status 11/12/17 10:00 Nasal Washing Influenza Types A,B Antigen ([facility]) - Final NEGATIVE FOR FLU A AND B ANTIGEN.... Complete Mark Anthony Cook MD Nov 13, 2017 17:31
[2017-11-14] VITALS: BP 134/74; PULSE 75; RESP 20; TEMP 97; O2SAT 93
[2017-11-14 04:00] VITALS: BP 134/68; PULSE 72; RESP 18; TEMP 96.8; O2SAT 93
[2017-11-14 08:00] VITALS: PULSE 72
[2017-11-14] MEDS: ASPIRIN EC 81 MG TABEC PO SCH (09:00)
[2017-11-14] MEDS: SACUBITRIL/VALSARTAN 49 MG-51 MG TAB PO SCH (09:00)
[2017-11-14 09:10] VITALS: BP 132/76; PULSE 72; RESP 15; TEMP 96.8; O2SAT 91
[2017-11-14] MEDS: RIVAROXABAN 20 MG TAB PO SCH (09:52)
[2017-11-14] MEDS: ATORVASTATIN 40 MG TAB PO SCH (09:54)
[2017-11-14] MEDS: FUROSEMIDE 20 MG TAB PO SCH (09:54)
[2017-11-14] MEDS: PANTOPRAZOLE SOD 20 MG DELAYED RELEASE TAB PO SCH (09:54)
[2017-11-14] MEDS: SODIUM CHLORIDE 0.9% FLUSH 10 ML FLUSH IV FLUSH SCH (09:55)
[2017-11-14] MEDS: CARVEDILOL 3.125 MG TAB PO SCH (09:55)
[2017-11-14] MEDS ORDERED: ATOR40TA16 PO (10:16)
[2017-11-14 10:42] VITALS: O2SAT 91
--- NOTE | 2017-11-14 11:44 | HHI.DS ---
Discharge Summary Admission Date Nov 12, 2017 at 10:54 Discharge Date: Nov 14, 2017 Admitting Diagnosis TIA (1) Cerebrovascular accident ICD Code: I63.9 - Cerebral infarction, unspecified (2) Afib ICD Code: I48.91 - Unspecified atrial fibrillation (3) Congestive heart failure ICD Code: I50.9 - Heart failure, unspecified Procedures none Brief History - From Admission 86 year-old male with known history of hypertension, hyperlipidemia, chronic atrial fibrillation, history of TIA who presented to hospital because of acute neurological symptoms. Most information was taken from at bedside secondary to patient having difficulty with speech and cognition. As indicated by the that the patient was in his normal state of health when he woke up this morning. He was doing his normal morning routine, he went to have his morning constitutional and then when he came out of the bathroom he had significant dizziness and difficulty with ambulating. He started developing slurred speech. The states that she was a nurse and she did not want to drive him to the hospital so she called [facility]. She indicated the patient was experiencing right sided deficits where she tried to put the 4 kids right hand but he was not able to seasonal driver it. However he was able to seasonal driver with his left hand. He was not able to feed himself today. Patient was brought to the emergency department and stroke alert was called. NIH score was 4. Neurologist was called and indicated patient was not a candidate for TPA secondary to patient being on Xarelto. Patient was given aspirin and CTs were performed of the head and neck. No acute abnormality was found. No findings on CTA that could benefit from radiological intervention. Patient was recommended admission for further workup and evaluation. At the time evaluating the patient he still is having some speech difficulties. He is having orientation difficulties, he does know his self. He knows his date of . Could not tell me the month or year. Cannot tell me that the [place] was yesterday. He only indicated that it was the big race. CBC/BMP: 11/12/17 0850 11/12/17 0850 Significant Findings Laboratory Tests Test 11/12/17 08:50 11/12/17 10:00 11/12/17 16:45 11/13/17 05:10 Red Blood Count 4.33 MIL/MM3 (4.50-5.90) Monocytes (%) (Auto) 10.5 % (0.0-8.0) Prothrombin Time 14.4 SEC (9.8-11.6) Activated Partial Thromboplast Time 35.0 SEC (24.3-30.1) Random Glucose 119 MG/DL (74-106) Calcium Level 8.2 MG/DL (8.5-10.1) Estimat Glomerular Filtration Rate 57 ML/MIN (>89) Total Creatine Kinase 26 U/L (39-308) Troponin I LESS THAN 0.02 NG/ML Urine Occult Blood SMALL (NEG) Erythrocyte Sedimentation Rate GREATER THAN 140 mm/hr Cholesterol Level 103 MG/DL (120-200) HDL Cholesterol 32.0 MG/DL (40.0-60.0) Imaging Last Impressions Head CT 11/13/17 0000 Signed Impressions: Service Date/Time: Monday, November 13, 2017 15:50 - CONCLUSION: Atrophy. No evidence of acute intracranial pathology. Jacky Hope MD Neck CTA 11/12/17 0857 Signed Impressions: Service Date/Time: Sunday, November 12, 2017 09:16 - CONCLUSION: 1. Patent carotid arteries and vertebral arteries bilaterally. Tee Smith Jr., MD Head CTA 11/12/17 0857 Signed Impressions: Service Date/Time: Sunday, November 12, 2017 09:16 - CONCLUSION: 1. No embolus or thrombus observed. Tee Smith Jr., MD Chest X-Ray 11/12/17 0000 Signed Impressions: Service Date/Time: Sunday, November 12, 2017 09:58 - CONCLUSION: 1. Cardiomegaly with chronic appearing interstitial changes. No acute abnormality identified. Giovanny Trujillo MD PE at Discharge GENERAL: This is a well-nourished, well-developed patient, in no apparent distress. CARDIOVASCULAR: Regular rate and rhythm without murmurs, gallops, or rubs. RESPIRATORY: Clear to auscultation. Breath sounds equal bilaterally. No wheezes , rales, or rhonchi. GASTROINTESTINAL: Abdomen soft, non-tender, nondistended. Normal active bowel sounds MUSCULOSKELETAL: Extremities without clubbing, cyanosis, or edema. NEURO: Alert & Oriented x4 to person, place, time, situation. Moves all ext x4 Pt update on day of discharge GENERAL: This is a well-nourished, well-developed patient, in no apparent distress. CARDIOVASCULAR: Regular rate and rhythm without murmurs, gallops, or rubs. RESPIRATORY: Clear to auscultation. Breath sounds equal bilaterally. No wheezes , rales, or rhonchi. GASTROINTESTINAL: Abdomen soft, non-tender, nondistended. Normal active bowel sounds MUSCULOSKELETAL: Extremities without clubbing, cyanosis, or edema. NEURO: Alert & Oriented x4 to person, place, time, situation. Moves all ext x4 Hospital Course Patient is seen status post CVA. He was seen by neurology and Meds were adjusted to include a statin. He did well with rehab efforts. Pt Condition on Discharge: Good Discharge Disposition: Disch w/ Home Health Serv Discharge Time: <= 30 minutes Discharge Instructions DIET: Follow Instructions for: Heart Healthy Diet Speech Therapy-Diet Recommends: Regular Activities you can perform: Regular-No Restrictions Follow up Referrals: PCP Follow-up - 1 Week New Medications: Walker with Front Wheels (Walker with Front Wheels) 1 Mis Mis EA .XX DIRECTED, #1 0 Refills Atorvastatin (Atorvastatin) 40 Mg Tab 40 MG PO DAILY for Stroke Prevention, #31 TAB Continued Medications: Carvedilol (Carvedilol) 3.125 Mg Tab 3.125 MG PO DAILY, #60 TAB 0 Refills Furosemide (Furosemide) 20 Mg Tab 20 MG PO DAILY, #30 TAB 0 Refills Omeprazole (Omeprazole) 20 Mg Tab 20 MG PO DAILY, #30 TAB 0 Refills Potassium Chloride ER (Potassium Chloride ER) 10 Meq Cap 10 MEQ PO DAILY for Electrolyte Replacement, #30 CAP 0 Refills Rivaroxaban (Xarelto) 20 Mg Tab 20 MG PO DAILY for Blood Clot Prevention, TAB 0 Refills Sacubitril-Valsartan (Entresto) 49-51 Mg Tab 1 TAB PO BID for Heart Failure, #30 TAB 0 Refills Kavitha Westbrook MD Nov 14, 2017 11:44
--- NOTE | 2017-11-14 13:46 | ECHRPT ---
Indication: CVA/TIA CONCLUSIONS The left ventricular systolic function is normal with an estimated ejection fraction in the range of 35-40%. Normal left ventricular size. Moderate concentric left ventricular hypertrophy. No regional wall motion abnormalities are present. A pacemaker wire is noted. Calcification of the anterior mitral valve leaflet. Mild thickening of the aortic valve leaflets.Trace-mild aortic regurgitation.Trivial pulmonary valve regurgitation. BP: 134 / 68 HR: 90 Rhythm: Sinus MEASUREMENTS (Male / Female) Normal Values Technical Quality:Fair 2D ECHO LV Diastolic Diameter PLAX 4.3 cm 4.2 - 5.9 / 3.9 - 5.3 cm LV Systolic Diameter PLAX 3.3 cm IVS Diastolic Thickness 1.4 cm 0.6 - 1.0 / 0.6 - 0.9 cm LVPW Diastolic Thickness 1.4 cm 0.6 - 1.0 / 0.6 - 0.9 cm LV Relative Wall Thickness 0.6 RV Internal Dim ED PLAX 2.5 cm LVOT Diameter 1.5 cm LA Systolic Diameter LX 2.5 cm 3.0 - 4.0 / 2.7 - 3.8 cm LV Ejection Fraction MOD 4C 52.6 % LV Ejection Fraction 4C AL 55.4 % M-MODE Aortic Root Diameter MM 4.0 cm LA Systolic Diameter MM 2.2 cm LA Ao Ratio MM 0.6 AV Cusp Separation MM 1.5 cm DOPPLER AV Peak Velocity 130.0 cm/s AV Peak Gradient 6.8 mmHg AI Peak Velocity 282.0 cm/s AI Peak Gradient 31.8 mmHg AI Pressure Half Time 415.0 ms LVOT Peak Velocity 80.9 cm/s LVOT Peak Gradient 2.6 mmHg AV Area Cont Eq pk 1.1 cm MV Area PHT 4.4 cm Mitral E Point Velocity 45.9 cm/s Mitral A Point Velocity 80.0 cm/s Mitral E to A Ratio 0.6 LV E' Lateral Velocity 4.9 cm/s Mitral E to LV E' Lateral Ratio 9.4 LV E' Septal Velocity 4.3 cm/s Mitral E to LV E' Septal Ratio 10.7 PV Peak Velocity 74.7 cm/s PV Peak Gradient 2.2 mmHg FINDINGS LEFT VENTRICLE The left ventricular systolic function is normal with an estimated ejection fraction in the range of 55-60%. Normal left ventricular size. Moderate concentric left ventricular hypertrophy. No regional wall motion abnormalities are present. RIGHT VENTRICLE A pacemaker wire is noted. LEFT ATRIUM The left atrial size is normal. RIGHT ATRIUM The right atrial size is normal. ATRIAL SEPTUM Normal atrial septal thickness without atrial level shunting by limited color doppler interrogation. AORTA The aortic root and proximal ascending aorta are normal in size on limited imaging. MITRAL VALVE Structurally normal mitral valve. Calcification of the anterior mitral valve leaflet. AORTIC VALVE Trileaflet aortic valve. Mild thickening of the aortic valve leaflets.Trace-mild aortic regurgitation. TRICUSPID VALVE Structurally normal tricuspid valve. No tricuspid valve stenosis or regurgitation. PULMONARY VALVE Trivial pulmonary valve regurgitation. VESSELS The inferior vena cava is normal in size. PERICARDIUM No pericardial effusion. Cuauhtemoc Sparrow MD, FACC, FSCAI (Electronically Signed) Final Date:14 November 2017 13:45
--- NOTE | 2017-11-14 14:54 | HHI.FF ---
Face to Face Verification Diagnosis: (1) Cerebrovascular accident Physical Therapy Order: Evaluate and Treat, Improve ambulation Occupational Therapy Order: Evaluate and Treat, Gross motor coordination Home Health Nursing Order: Medical education Signs/symptoms of disease process I have seen patient Isidro Murray Jr Nicolas on 11/14/17. My clinical findings support the need for the requested home health care services because: Ltd mobility - disease progression Deconditioned w/ increased weakness I certify that my clinical findings support that this patient is homebound because: Unsteady gait/balance Poor cardiac reserve Bhavna Bowling Nov 14, 2017 14:54
--- NOTE | 2017-11-15 10:20 | HHI.FF ---
Face to Face Verification Diagnosis: (1) Cerebrovascular accident (2) Afib Physical Therapy Order: Evaluate and Treat, Improve ambulation Occupational Therapy Order: Evaluate and Treat, Improve ADL, Gross motor coordination Home Health Nursing Order: Medical education Signs/symptoms of disease process I have seen patient Isidro ValenzuelaJr on 11/15/17. My clinical findings support the need for the requested home health care services because: Ltd mobility - disease progression Impaired cognition/judgement I certify that my clinical findings support that this patient is homebound because: Impaired cognitive ability/safety Unsteady gait/balance Kavitha Westbrook MD Nov 15, 2017 10:20
== END 2017-11-14 13:59 | disposition home health service (06) | DRG 66 ==
LOC: PHED 08:51 → PHEDA 10:54 → PH3A 15:29
PROVIDERS: ADMIT Hospitalist; ATTEND Hospitalist
DX: I63.9 Cerebral infarction, unspecified (principal); I50.9 Heart failure, unspecified; I48.2 Chronic atrial fibrillation; I11.0 Hypertensive heart disease with heart failure; R29.810 Facial weakness; K21.9 Gastro-esophageal reflux disease without esophagitis; E78.5 Hyperlipidemia, unspecified; G31.9 Degenerative disease of nervous system, unspecified; R47.1 Dysarthria and anarthria; R47.81 Slurred speech; R29.702 NIHSS score 2; Z79.01 Long term (current) use of anticoagulants; Z85.828 Personal history of other malignant neoplasm of skin; Z86.73 Personal history of transient ischemic attack (TIA), and cerebral infarction without residual deficits; Z95.0 Presence of cardiac pacemaker
CPT/HCPCS: 70450; 70496; 70498; 71045; 80048; 80061; 80307; 81001; 82550; 82607; 82746; 82948; 83036; 84443; 84484; 85025; 85384; 85610; 85652; 85730; 86850; 86900; 86901; 87804; 93005; 93306; 96360; J7030; P9612; Q9967